=== PATIENT | male | born 1940 | race Caucasian/White ===

== ENCOUNTER → 2017-01-26 | Outpatient (CLI) | payer BC ==
[~2017-01-26] MED LIST: CZR50 PO; DICL-201 PO; HYDR25TA5 PO; OXYC-57 PO; RXC5 PO; SNG10 PO; TRAM-10 PO
[2017-01-26 13:52] LABS: ESTIMATED AVERAGE GLUCOSE 140 mg/dl; HA1C FLAG Normal (Normal)
[2017-01-26 14:02] LABS: ALT/SGPT 24 U/L (12-78); AST/SGOT 17 U/L (15-37); BLOOD UREA NITROGEN 15 mg/dl (7-18); BUN/CREATININE RATIO 16.6 (10-20); CARBON DIOXIDE 31 mmol/L (21-32); CHLORIDE 103 mmol/L (98-107); CHOLESTEROL 212 mg/dl (0-200); CREATININE 0.92 mg/dl (0.60-1.40); GLUCOSE 137 mg/dl (70-99); SODIUM 140 mmol/L (136-145); TRIGLYCERIDES 48 mg/dl (0-150); VERY LOW DENSITY LIPOPROT CALC 10 mg/dl
[2017-01-26 14:06] LABS: CHOLESTEROL/HDL RATIO 2.6; HDL CHOLESTEROL 81 mg/dl; LDL CHOLESTEROL CALCULATED 121 mg/dl
[2017-01-26 14:47] LABS: CALCIUM 9.9 mg/dl (8.5-10.1)
--- NOTE | 2017-02-01 08:29 | CODING QUERY MEDICAL NECESSITY ---
CQSUPPORTING DIAGNOSIS NEEDED A supporting diagnosis is required for the test/procedure performed on this patient in order for us to be reimbursed by the patient's insurance. Please provide a supporting diagnosis for the following test/procedure listed below next to the test name along with your signature. *If there is no additional diagnosis for this patient that would support the following test/procedure please document that below next to the test/procedure. Test(s)/Procedure(s) that require a supporting diagnosis: CRESENCIO 01/26/17 GLYCATED HEMOGLOBIN TEST Provider Signature: Date: Thank you Natasha Castellanos Health Information Management Once completed, please kindly fax back to [phone] For questions please call [phone]
== END | disposition home or self-care (01) ==
LOC: C.LABMFLN 08:50
PROVIDERS: ATTEND Family Medicine
DX: I10 Essential (primary) hypertension (principal); E11.9 Type 2 diabetes mellitus without complications

== ENCOUNTER → 2017-01-30 | Outpatient (CLI) | payer BC ==
[2017-01-30 14:23] LABS: RATIO 39.2 mcg/mg (0-30.0)
== END | disposition home or self-care (01) ==
LOC: C.LABMFLN 08:45
PROVIDERS: ATTEND Family Medicine
DX: E11.9 Type 2 diabetes mellitus without complications (principal)

== ENCOUNTER 2017-03-26 10:45 | Inpatient (IN) | payer BC, OTHER ==
[~2017-03-26] VITALS: Ht 172.7 cm; Wt 77.0 kg
[2017-03-26] MEDS ORDERED: OXYC-57 PO (11:09)
[2017-03-26] MEDS ORDERED: CZR50 PO (11:09)
[2017-03-26] MEDS ORDERED: DICL-201 PO (11:09)
[2017-03-26] MEDS ORDERED: TRAM-10 PO (11:09)
[2017-03-26] MEDS ORDERED: SNG10 PO (11:09)
[2017-03-26] MEDS ORDERED: HYDR25TA5 PO (11:09)
[2017-03-26] MEDS ORDERED: MoRPHine SULFATE 4 MG/ML 1 ML CARP\\VIAL IV STA ×2 (11:32→12:17)
[2017-03-26] MEDS ORDERED: ONDANSETRON INJ 2 MG/ML 2 ML VIAL IV STA (11:32)
--- NOTE | 2017-03-26 11:42 | EMERGENCY ROOM VISIT NOTE ---
History Report prepared by Ijeoma: Jesscia Hinton Under the Supervision of: Dr. Isaac Tamayo M.D. First contact with patient: 11:20 Chief Complaint: BACK PAIN Stated Complaint: SCIATICA PAIN,REFERRED BY DOCTOR History of Present Illness The patient is a 76 year old male who presents to the Emergency Room with complaints of constant back pain beginning 1 week ago. The patient states that he was seen by Dr. Jocelyn booth of orthopedics to have a spinal injection and before he got the injection he was told to come into the ED for his severe pain. He reports that he was told that he needs pain medication, an MRI, and admission by Dr. Arguelles. He notes that he has never had back pain before this week and has a history or arthritis, bone spurs, and narrowing at L3. The patient states that he has had an X-Ray and CT scan but not an MRI before. He complains of right leg pain, numbness and weakness in the right leg, and shortness of breath with the pain. He denies any injury, foot pain, incontinence , fever, chills, nausea, vomiting, and chest pain. Source of History: patient Onset: 1 week ago Position: back Quality: other (radiating) Timing: constant Associated Symptoms: + SOB, + weakness, + numbness, No fevers, No chills, No chest pain, No nausea, No vomiting Note: He complains of right leg pain. He denies any injury, foot pain, incontinence. Review of Systems See HPI for pertinent positives & negatives. A total of 10 systems reviewed and were otherwise negative. Past Medical & Surgical Medical Problems: (1) Arthritis (2) Lumbar disc herniation with radiculopathy Old medical records were reviewed. Nurse's notes were reviewed and I agree with. Family History No pertinent family history stated. Social History Smoking Status: Former Smoker Drug Use: none Marital Status: Housing Status: lives with significant other Occupation Status: retired Current/Historical Medications Scheduled Diclofenac (Voltaren), 75 MG PO BID Hydrochlorothiazide (Hydrochlorothiazide), 25 MG PO DAILY Losartan Potassium (Losartan Potassium), 50 MG PO DAILY Montelukast Sod (Montelukast Sodium), 10 MG PO QPM Scheduled PRN Oxycodone/Acetaminophen 5MG/325MG (Percocet 5MG/325MG), 1 TABLET PO Q8 PRN for Pain Tramadol (Ultram), 50 MG PO Q6 PRN for Pain Allergies Coded Allergies: No Known Allergies (Unverified , 03/26/17) Physical Exam Vital Signs Date Time Temp Pulse Resp B/P (MAP) Pulse Ox O2 Delivery O2 Flow Rate FiO2 03/26/17 14:30 78 18 136/66 95 Room Air 03/26/17 12:28 67 18 199/92 97 Room Air Physical Exam General: Well developed well nourished uncomfortable appearing older male, breathing comfortably on room air. Normal speech. Complaining of back pain radiating down the right leg. HEENT: Normal cephalic atraumatic. Pupils are equal round and reactive to light. Extraocular movements are intact. Sclerae anicteric. Oropharynx is pink with moist mucous membranes. No swelling of the mouth lips or tongue. Neck: Supple with a midline trachea. No meningeal signs or stiffness, no JVD or bruits. No Stridor. Chest: Clear to auscultation bilaterally. No wheezes or rhonchi. No increased work of breathing. Heart: regular rate and rhythm. Abdomen: Soft nontender, nondistended without rebound guarding or rigidity. Extremities: No cyanosis clubbing or edema. No calf tenderness or assymetry Spine/Back. Non tender to palpation. No CVA tenderness Skin: Good turgor without rashes. Neurologic exam: Cranial nerves two through 12 are intact. Motor and sensation are intact and symmetrical throughout. No numbness in buttock some subjective numbness in right medial right thigh. Medical Decision & Procedures ER Provider Diagnostic Interpretation: Radiology results as stated below per my review and radiologist interpretation: MRI OF THE LUMBAR SPINE WITHOUT CONTRAST FINDINGS: For purposes of numbering on this exam, the L5-S1 disc space is assigned to axial image 27 of 30. This exam is moderately compromised by motion artifact. A 2.8 cm T1 and T2 hyperintense L1 vertebral body lesion reflects a hemangioma. There are numerous additional hemangiomas within the lumbar spine. There is no intracanalicular mass or fluid collection. Conus terminates at the upper L1 level. Note is made of mild nonspecific edema within the right paraspinal musculature of the lower lumbar spine at the L3-L5 level shown best on sagittal STIR image of . No discrete fluid collection is identified. L1-2: The central canal and neural foramen are patent. L2-3: The central canal and neural from are patent. L3-4: There is disc bulge with a superimposed right foraminal disc protrusion. This results in severe narrowing of the right neural foramen with mass effect upon the exiting right L3 nerve root. The left neural foramen and central canal are patent. L4-5: Central canal is patent. There is facet arthrosis. Note is made of mild narrowing of the right neural foramen. L5-S1: There is slight anterolisthesis. There is mild disc bulge with facet arthrosis. Central canal is patent. There is mild narrowing of both neural foramen. IMPRESSION: 1. Disc bulge with superimposed right foraminal disc protrusion/extrusion at L3-L4 that results in severe narrowing of the right neural foramen with mass effect upon the exiting right L3 nerve root. This could be correlated with right L3 radiculopathy. 2. Study moderately compromised by motion artifact. No central canal stenosis. 3. Mild nonspecific edema of the right paraspinal musculature at the L3-L5 levels. No discrete associated fluid collection. Electronically signed by: Richard Rodriguez M.D. 03/26/2017 1:48 PM Dictated Date/Time: 03/26/2017 1:35 PM Laboratory Results 03/26/17 11:45 Red Blood Count 5.50, Mean Corpuscular Volume 87.8, Mean Corpuscular Hemoglobin 31.1, Mean Corpuscular Hemoglobin Concent 35.4, Mean Platelet Volume 10.9, Neutrophils (%) (Auto) 85.2, Lymphocytes (%) (Auto) 7.5, Monocytes (%) (Auto) 6.0, Eosinophils (%) (Auto) 0.7, Basophils (%) (Auto) 0.1, Neutrophils # (Auto) 8.13, Lymphocytes # (Auto) 0.72, Monocytes # (Auto) 0.57, Eosinophils # (Auto) 0.07, Basophils # (Auto) 0.01 Test 03/26/17 11:45 03/26/17 14:58 White Blood Count 9.55 K/uL (4.8-10.8) Red Blood Count 5.50 M/uL (4.7-6.1) Hemoglobin 17.1 g/dL (14.0-18.0) Hematocrit 48.3 % (42-52) Mean Corpuscular Volume 87.8 fL (80-100) Mean Corpuscular Hemoglobin 31.1 pg (25-34) Mean Corpuscular Hemoglobin Concent 35.4 g/dl (32-36) Platelet Count 249 K/uL (130-400) Mean Platelet Volume 10.9 fL (7.4-10.4) Neutrophils (%) (Auto) 85.2 % Lymphocytes (%) (Auto) 7.5 % Monocytes (%) (Auto) 6.0 % Eosinophils (%) (Auto) 0.7 % Basophils (%) (Auto) 0.1 % Neutrophils # (Auto) 8.13 K/uL (1.4-6.5) Lymphocytes # (Auto) 0.72 K/uL (1.2-3.4) Monocytes # (Auto) 0.57 K/uL (0.11-0.59) Eosinophils # (Auto) 0.07 K/uL (0-0.5) Basophils # (Auto) 0.01 K/uL (0-0.2) RDW Standard Deviation 43.6 fL (36.4-46.3) RDW Coefficient of Variation 13.4 % (11.5-14.5) Immature Granulocyte % (Auto) 0.5 % Immature Granulocyte # (Auto) 0.05 K/uL (0.00-0.02) Est Creatinine Clear Calc Drug Dose 57.0 ml/min Laboratory studies as stated above per my review. Medications Administered Medications (Trade) Dose Ordered Sig/Zion Route Start Time Stop Time Status Last Admin Dose Admin Morphine Sulfate (MoRPHine SULFATE INJ) 4 mg NOW STAT IV 03/26/17 11:32 03/26/17 11:34 DC 03/26/17 11:48 4 MG Ondansetron HCl (Zofran Inj) 4 mg NOW STAT IV 03/26/17 11:32 03/26/17 11:34 DC 03/26/17 11:49 4 MG Ketorolac Tromethamine (Toradol Inj) 30 mg NOW STAT IV 03/26/17 12:17 03/26/17 12:19 DC 03/26/17 12:28 30 MG Morphine Sulfate (MoRPHine SULFATE INJ) 4 mg NOW STAT IV 03/26/17 12:17 03/26/17 12:19 DC 03/26/17 12:27 4 MG Lorazepam (Ativan Inj) 1 mg NOW STAT IV 03/26/17 12:47 03/26/17 12:48 DC 03/26/17 13:00 1 MG ED Course 1120: Past medical records reviewed. The patient was evaluated in room C11B, and a complete history and physical examination were performed. 1132: Zofran Inj 4mg IV, Morphine Sulfate 4mg IV. 1217: Morphine Sulfate 4mg IV, Toradol Inj 30mg IV. 1233: I reevaluated the patient and he is doing well. 1247: Ativan Inj 1mg IV. 1345: I reevaluated and updated the patient. He appears comfortable and slightly sedated. 1409: Discussed the patient's case with Dr. Arguelles of Orthopedics. The patient will be evaluated for further management. 1417: Upon reevaluation, the patient is doing well and is slightly spacey. I discussed the results and treatment plan with the patient and his . They verbalized agreement of the treatment plan. The patient will be evaluated for further management. Medical Decision Differential diagnosis includes sciatica, cauda equina, disc disease, infection , electrolyte or metabolic abnormality. This patient comes in as described above he's had ongoing back pain with sciatic symptoms. He was seen by Drs. Dickens in pain management today had an injection was sent to the ER for pain management MRI and likely admission. The patient does seem very uncomfortable and is unable to sit down secondary the pain initially. He has no obvious neurologic deficits and he has nothing to suggest cauda equina syndrome. IV access established was given morphine 4 mg IV and Zofran 4 mg IV and he require additional IV morphine and seemed more comfortable. He has no significant electrolyte or metabolic abnormality. He has nothing to suggest infection or significant anemia. He was having a hard time getting the MRI done and was given Ativan 1 mg IV. The MRI was obtained and does show a large disc with impingement on the L3 nerve root on the right. This does correspond with his symptoms. I have discussed the case with Dr. Arguelles, the spinal surgeon, and consulted him he saw the patient in the ER and is going to admit the patient for further treatment, pain management, and evaluation and likely operative care. Medication Reconcilliation Current Medication List: was personally reviewed by me Blood Pressure Screening Patient's blood pressure: Elevated blood pressure Blood pressure disposition: Referred to PCP Consults Time Called: [id number] Consulting Physician: Dr. Arguelles - Ortho Returned Call: [phone] Discussed the patient's case with Dr. Arguelles of Orthopedics. The patient will be evaluated for further management. Impression Primary Impression: Back pain Additional Impression: Lumbar disc disease Scribe Attestation The scribe's documentation has been prepared under my direction and personally reviewed by me in its entirety. I confirm that the note above accurately reflects all work, treatment, procedures, and medical decision making performed by me. Departure Information Dispostion Being Evaluated By Hospitalist Referrals Kenneth Pinzon M.D. (PCP) Patient Instructions My [facility] Problem Qualifiers
[2017-03-26 12:00] LABS: BASO % 0.1 %; BASO ABS # 0.01 K/uL (0-0.2); COMPLETE YES; EOS % 0.7 %; HEMATOCRIT 48.3 % (42-52); IG% 0.5 %; LYMPH % 7.5 %; LYMPH ABS # 0.72 K/uL (1.2-3.4); MEAN CELL VOLUME 87.8 fL (80-100); MEAN CORPUSCULAR HEMOGLOBIN 31.1 pg (25-34); MEAN CORPUSCULAR HGB CONC 35.4 g/dl (32-36); MEAN PLATELET VOLUME 10.9 fL (7.4-10.4); NEUT % 85.2 %; PLATELET COUNT 249 K/uL (130-400); WHITE BLOOD COUNT 9.55 K/uL (4.8-10.8)
[2017-03-26] MEDS ORDERED: KETOROLAC TROMETHAMINE 30 MG/ML VIAL IV STA (12:17)
[2017-03-26 12:25] LABS: BUN/CREATININE RATIO 25.6 (10-20); CALCIUM 10.3 mg/dl (8.5-10.1); CREATININE 1.1 mg/dl (0.60-1.40); POTASSIUM 3.9 mmol/L (3.5-5.1)
[2017-03-26] MEDS ORDERED: LORAZEPAM 2 MG/ML 1 ML VIAL IV STA (12:47)
--- NOTE | 2017-03-26 13:49 | DIAGNOSTIC IMAGING REPORT ---
MRI OF THE LUMBAR SPINE WITHOUT CONTRAST CLINICAL HISTORY: Severe low back pain radiating into right lower extremity. COMPARISON STUDY: No previous studies for comparison. TECHNIQUE: Utilizing a 1.5 Laura magnet and dedicated coil, multiplanar, multiecho imaging of the lumbar spine was performed without IV contrast. FINDINGS: For purposes of numbering on this exam, the L5-S1 disc space is assigned to axial image 27 of 30. This exam is moderately compromised by motion artifact. A 2.8 cm T1 and T2 hyperintense L1 vertebral body lesion reflects a hemangioma. There are numerous additional hemangiomas within the lumbar spine. There is no intracanalicular mass or fluid collection. Conus terminates at the upper L1 level. Note is made of mild nonspecific edema within the right paraspinal musculature of the lower lumbar spine at the L3-L5 level shown best on sagittal STIR image 2 of 17. No discrete fluid collection is identified. L1-2: The central canal and neural foramen are patent. L2-3: The central canal and neural from are patent. L3-4: There is disc bulge with a superimposed right foraminal disc protrusion. This results in severe narrowing of the right neural foramen with mass effect upon the exiting right L3 nerve root. The left neural foramen and central canal are patent. L4-5: Central canal is patent. There is facet arthrosis. Note is made of mild narrowing of the right neural foramen. L5-S1: There is slight anterolisthesis. There is mild disc bulge with facet arthrosis. Central canal is patent. There is mild narrowing of both neural foramen. IMPRESSION: 1. Disc bulge with superimposed right foraminal disc protrusion/extrusion at L3-L4 that results in severe narrowing of the right neural foramen with mass effect upon the exiting right L3 nerve root. This could be correlated with right L3 radiculopathy. 2. Study moderately compromised by motion artifact. No central canal stenosis. 3. Mild nonspecific edema of the right paraspinal musculature at the L3-L5 levels. No discrete associated fluid collection. Electronically signed by: Richard Rodriguez M.D. 03/26/2017 1:48 PM Dictated Date/Time: 03/26/2017 1:35 PM
[2017-03-26] MEDS ORDERED: SODIUM CHLORIDE 0.9% 1000ML 1,000 ML IV SCH (14:58)
[2017-03-26] MEDS ORDERED: PROMETHAZINE HCL INJ 12.5 MG in SODIUM CHLORIDE 0.9% 50ML 50 ML IV PRN (15:00)
[2017-03-26] MEDS ORDERED: LORAZEPAM INJ 1 MG in SYRINGE 0.5 ML IV PRN (15:00)
[2017-03-26] MEDS ORDERED: ACETAMINOPHEN 325 MG TAB PO PRN (15:00)
[2017-03-26] MEDS ORDERED: LORAZEPAM 1 MG TAB PO PRN (15:00)
[2017-03-26] MEDS ORDERED: NALOXONE HCL 0.4 MG/1 ML VIAL/CARP IV PRN (15:00)
[2017-03-26] MEDS ORDERED: OXYCODONE/ACETAMINOPHEN 5-325 TAB PO PRN (15:00)
[2017-03-26] MEDS ORDERED: TRAMADOL HCL 50 MG TAB PO PRN (15:00)
[2017-03-26] MEDS ORDERED: CYCLOBENZAPRINE HCL 10 MG TAB PO PRN (15:00)
[2017-03-26] MEDS ORDERED: ONDANSETRON INJ 2 MG/ML 2 ML VIAL IV PRN (15:00)
--- NOTE | 2017-03-26 15:09 | History and Physical ---
History & Physical Date Mar 26, 2017. Chief Complaint Back and severe right anterior thigh pain History of Present Illness The patient is a 76 year old male with complaints of severe right leg pain. His symptoms began roughly 2 weeks ago after doing some modest yardwork. Initially began as mostly back pain modest leg pain. He underwent some healthcare prof. Unfortunately symptoms progressed to severe right leg pain. Been managed by his family physician. He has been taking oral prednisone a muscle relaxer and oxycodone. This is failed to provide any relief. He was seen by my partner and interventional pain management today but the epidural injection failed to provide any relief in fact markedly exacerbated his pain. He's been unable to sleep. Endplates is quite painful. He denies a loss of bowel or bladder control. He denies any significant left proximal knee pain. He has no significant history of back or radicular complaints prior to this time. Past Medical/Surgical History Medical Problems: (1) Arthritis (2) Lumbar disc herniation with radiculopathy Additional History Hepatic Disease: No Endocrine Disorder: No Kidney Disease: No Hypertension: Yes Heart Disease: No Bleeding Tendencies: No Infectious Diseases: No Allergies Coded Allergies: No Known Allergies (Unverified , 03/26/17) Home Medications Scheduled Diclofenac (Voltaren), 75 MG PO BID Hydrochlorothiazide (Hydrochlorothiazide), 25 MG PO DAILY Losartan Potassium (Losartan Potassium), 50 MG PO DAILY Montelukast Sod (Montelukast Sodium), 10 MG PO QPM Scheduled PRN Oxycodone/Acetaminophen 5MG/325MG (Percocet 5MG/325MG), 1 TABLET PO Q8 PRN for Pain Tramadol (Ultram), 50 MG PO Q6 PRN for Pain Physical Examination Skin: warm/dry, no rash Eyes: normal inspection, EOMI, sclerae normal ENT: normal ENT inspection, pharynx normal Head: normocephalic, atraumatic Neck: supple, no adenopathy, trachea midline Respiratory/Chest: lungs clear, normal breath sounds, no respiratory distress Cardiovascular: regular rate, rhythm, no edema, no murmur Abdomen / GI: normal bowel sounds, non tender Back: normal inspection Extremities: normal inspection, normal range of motion Neurologic/Psych: no motor/sensory deficits, alert, normal reflexes, oriented x 3 Addiitonal Comments: Patient exhibits +5 over 5 bilateral plantarflexion dorsiflexion extensor pollicis longus. His left quadricep is a 4 over 5 compared to L4 5 on the right. His marked decreased sensation to the right anterior thigh compared to left. Normal skin markings. Has negative logroll bilaterally. Deep tendon reflexes are diminished bilaterally. Marked with positive tension signs with right leg extension. Diagnosis Far lateral disc herniation L3 4 on the right. Plan of Treatment At this time patient's CAT scan and MRI confirm a massive far lateral disc herniation L3 4 on the right. There is almost complete occlusion of the neural foramen on the right. This is consistent with his clinical presentation. He is failed extensive course of nonoperative care is markedly uncomfortable like to pursue surgical intervention. It would require a lumbar decompression and fusion at the L3 4 level. To adequately and safely address decompression of the L3 nerve root on the right it would require a facetectomy and subsequent stabilization. Risks benefits pros cons and alternatives were outlined in detail. Risk include but not limited to from anesthesia blindness sterile process nerve damage but last current transfusion infection requiring reoperation benefits hopefully be marked improvement of his radicular complaints. This time we will place him in the hospital for pain control preoperative violation. We will make him nothing by mouth after midnight. Plan for surgery in the a.m.
--- NOTE | 2017-03-26 16:00 | DIAGNOSTIC IMAGING REPORT ---
CHEST 2 VIEWS ROUTINE HISTORY: pre op COMPARISON: None. FINDINGS: The lungs are clear. Cardiac silhouette is normal in size. No pleural effusions. No pneumothorax. Old, healed right-sided rib fractures. IMPRESSION: No acute process. Electronically signed by: Vikas Walden M.D. 03/26/2017 3:59 PM Dictated Date/Time: 03/26/2017 3:46 PM
--- NOTE | 2017-03-26 16:26 | Anesthesiology Progress Note ---
Anesthesia Progress Note Date of Service Mar 26, 2017. Progress Notes The patient was seen and examined. HTN/seasonal allergies, tolerated GA well in past. No family GA complications. Pt is of acceptable risk for GA tomorrow. NPO after MN. Consent obtained.
[2017-03-26 17:00] VITALS: BP 171/85; PULSE 85; TEMP 36.7; O2SAT 94
[2017-03-26 18:12] VITALS: BP 177/83; PULSE 88; TEMP 36.9; O2SAT 95
[2017-03-26] MEDS: HYDROmorphone HCL 0.5MG/ML 50 ML CASSETTE IV PRN ×2 (18:21→22:58)
[2017-03-26 18:41] LABS: CALCIUM 10.5 mg/dl (8.5-10.1); POTASSIUM 4.3 mmol/L (3.5-5.1)
[2017-03-26 18:43] LABS: ALB/GLOB RATIO 1.2 (0.9-2)
[2017-03-26 18:45] VITALS: Ht 172.7 cm; Wt 77.0 kg
--- NOTE | 2017-03-26 20:33 | History and Physical ---
History & Physical Date & Time of Service: Mar 26, 2017 at 20:18 Chief Complaint: Lumbar Disc Herniation With Radiculopathy Primary Care Physician: Kenneth Pinzon M.D. History of Present Illness Source: patient *NOTE: Please accept this as a Medical Consultation note - Dr Arguelles has primary management of the patient and we consulted.* Mr Real is a 76 yo M who is getting a facetectomy with Dr Arguelles tomorrow for lateral disc herniation L3-4 on the right. He has a hx of hypertension. 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 He reports he is otherwise very active, and denies chest pain or shortness of breath with any exertion. He denies a hx of sleep apnea, and he does not snore, have frequent AM headaches, or stop breathing in his sleep per . His BP is usually well controlled at home, and he takes Losartan and HCTZ. He is not diabetic. He has been reviewed by anesthesia already. Past Medical/Surgical History Medical Problems: (1) Arthritis Status: Chronic PSHx: Acoustic neuroma removal Family History No pertinent FHx Social History Smoking Status: Former Smoker Drug Use: none Marital Status: Occupational Status: retired Allergies Coded Allergies: No Known Allergies (Unverified , 03/26/17) Home Medications Scheduled Diclofenac (Voltaren), 75 MG PO BID Hydrochlorothiazide (Hydrochlorothiazide), 25 MG PO DAILY Losartan Potassium (Losartan Potassium), 50 MG PO DAILY Montelukast Sod (Montelukast Sodium), 10 MG PO QPM Scheduled PRN Oxycodone/Acetaminophen 5MG/325MG (Percocet 5MG/325MG), 1 TABLET PO Q8 PRN for Pain Tramadol (Ultram), 50 MG PO Q6 PRN for Pain Review of Systems See HPI for pertinent positives & negatives. A total of 10 systems reviewed and were otherwise negative. Physical Exam Vital Signs Date Time Temp Pulse Resp B/P (MAP) Pulse Ox O2 Delivery O2 Flow Rate FiO2 03/26/17 18:45 Room Air 03/26/17 18:12 36.9 88 20 177/83 (114) 95 Room Air 03/26/17 17:00 Room Air 03/26/17 17:00 36.7 85 20 171/85 (113) 94 Room Air 03/26/17 16:36 72 16 177/85 97 03/26/17 14:30 78 18 136/66 95 Room Air 03/26/17 12:28 67 18 199/92 97 Room Air GENERAL: Awake, alert, well-appearing, in no acute distress HENT: Normocephalic, atraumatic. Oropharynx unremarkable. EYES: Normal conjunctiva. Sclera non-icteric. NECK: Supple. No nuchal rigidity. FROM. No JVD. RESPIRATORY: Clear to auscultation. CARDIAC: Regular rate, normal rhythm. Extremities warm and well perfused. Pulses equal. ABDOMEN: Soft, non-distended. No tenderness to palpation. No rebound or guarding. No masses. MUSCULOSKELETAL: Chest examination reveals no tenderness. The back is symmetrical on inspection without obvious abnormality. LOWER EXTREMITIES: Calves are equal size bilaterally and non-tender. No edema. No discoloration. NEURO: Normal sensorium. No sensory or motor deficits noted. SKIN: No rash or jaundice noted. Diagnostics Laboratory Results Results Past 24 Hours Test 03/26/17 11:45 03/26/17 18:13 Range/Units White Blood Count 9.55 4.8-10.8 K/uL Red Blood Count 5.50 4.7-6.1 M/uL Hemoglobin 17.1 14.0-18.0 g/dL Hematocrit 48.3 42-52 % Mean Corpuscular Volume 87.8 80-100 fL Mean Corpuscular Hemoglobin 31.1 25-34 pg Mean Corpuscular Hemoglobin Concent 35.4 32-36 g/dl Platelet Count 249 130-400 K/uL Mean Platelet Volume 10.9 7.4-10.4 fL Neutrophils (%) (Auto) 85.2 % Lymphocytes (%) (Auto) 7.5 % Monocytes (%) (Auto) 6.0 % Eosinophils (%) (Auto) 0.7 % Basophils (%) (Auto) 0.1 % Neutrophils # (Auto) 8.13 1.4-6.5 K/uL Lymphocytes # (Auto) 0.72 1.2-3.4 K/uL Monocytes # (Auto) 0.57 0.11-0.59 K/uL Eosinophils # (Auto) 0.07 0-0.5 K/uL Basophils # (Auto) 0.01 0-0.2 K/uL RDW Standard Deviation 43.6 36.4-46.3 fL RDW Coefficient of Variation 13.4 11.5-14.5 % Immature Granulocyte % (Auto) 0.5 % Immature Granulocyte # (Auto) 0.05 0.00-0.02 K/uL Sodium Level 137 137 136-145 mmol/L Potassium Level 3.9 4.3 3.5-5.1 mmol/L Chloride Level 104 104 98-107 mmol/L Carbon Dioxide Level 27 25 21-32 mmol/L Anion Gap 6.0 8.0 3-11 mmol/L Blood Urea Nitrogen 28 30 7-18 mg/dl Creatinine 1.10 1.00 0.60-1.40 mg/dl Est Creatinine Clear Calc Drug Dose 57.0 62.7 ml/min Estimated GFR () 76.2 85.6 Estimated GFR (Non- 65.8 73.8 BUN/Creatinine Ratio 25.6 30.0 10-20 Random Glucose 134 159 70-99 mg/dl Calcium Level 10.3 10.5 8.5-10.1 mg/dl Total Bilirubin 1.0 0.2-1 mg/dl Aspartate Amino Transf (AST/SGOT) 13 15-37 U/L Alanine Aminotransferase (ALT/SGPT) 44 12-78 U/L Alkaline Phosphatase 81 45-117 U/L Total Protein 7.6 6.4-8.2 gm/dl Albumin 4.1 3.4-5.0 gm/dl Globulin 3.5 2.5-4.0 gm/dl Albumin/Globulin Ratio 1.2 0.9-2 Diagnostic Radiology IMPRESSION: 1. Disc bulge with superimposed right foraminal disc protrusion/extrusion at L3-L4 that results in severe narrowing of the right neural foramen with mass effect upon the exiting right L3 nerve root. This could be correlated with right L3 radiculopathy. 2. Study moderately compromised by motion artifact. No central canal stenosis. 3. Mild nonspecific edema of the right paraspinal musculature at the L3-L5 levels. No discrete associated fluid collection. CXR normal EKG Sinus rhythm normal EKG No previous ECGs available Impression Assessment and Plan 76 yo M, for lumbar disc surgery tomorrow with Dr Arguelles. Recommendations: Pre-op clearance: The patient is Class I Risk for the above listed procedure. He has been reviewed by anesthesia. We do not require cardiology clearance prior to his operation. He is also low risk for obstructive sleep apnea. Hypertension: We will hold his blood pressure medications, Losartan and HCTZ. Recommend re-starting post-operatively. DVT Prophylaxis per surgeon. Thank you for this consult. We will continue to follow. Attending Addendum: I have physically seen and examined this patient, have supervised the medical residents activities, and agree with the H&P as noted above with the following exceptions as noted. The patient is awake, well-developed and adequately nourished, alert and oriented 3, normocephalic and atraumatic, lying in bed and in no acute distress. HEENT--PERRL, EOMI, mucous membranes and oropharynx dry. Neck--supple, no JVD or bruits, thyroid normal, trachea midline, no adenopathy. Heart--normal S1 and S2, no extra beats, no murmurs, rubs or gallops. Lungs--clear bilaterally with good air movement, no respiratory distress, no accessory muscle use. Abdomen--normal bowel sounds and soft, nontender and nondistended, no hernias or masses, no organomegaly. Extremities--no cyanosis, clubbing or edema. There are good distal pulses b/l. Dermatologic--normal skin turgor, normal color, warm and dry, no abnormal lymph nodes, no rash. Neurologic--cranial nerves II through XII grossly intact, motor and sensory examination normal. Rheumatologic--normal range of motion, nontender, muscles and joints. Psychiatric--normal affect. Assessment and Plan: 1. Right L3 nerve compression for the OR in the morning by Dr. Arguelles--EKG shows normal sinus rhythm at 68 bpm with no acute ST-T changes, chest x-ray is normal. We'll hold HCTZ due to hypercalcemia. If Calcium persists elevated would order a 25-hydroxy vitamin D, PTH levels and GURVINDER level. If systolic blood pressures greater than 160 and heart rate greater than 70, will give metoprolol tartrate 25 mg by mouth tonight. Systolic blood pressure greater than 160 and heart rate less than 70, will give hydralazine 10 mg IV every 4 hours when necessary. Continue to give losartan 50 mg by mouth daily. Continue Singulair and tramadol as outpatient. Level of Care Med/Surg Advanced Directives Existing Living Will: Yes Existing Power of Frame Table Operator Helper: Yes ( Tanya) VTE Prophylaxis VTE Risk Assessment Done? Y/N: No Risk Level: Low Resident Tracking Resident Involvement: Resident Care Provided Care Provided: Adult Hospital Medicine
[2017-03-26] MEDS: MONTELUKAST SOD 10 MG TAB PO SCH (20:56)
[2017-03-26] MEDS: DOCUSATE SODIUM 100 MG CAP PO SCH (20:56)
[2017-03-26 21:05] VITALS: BP 162/78
[2017-03-26] MEDS ORDERED: HydrALAZINE HCL 20 MG/ML VIAL IV. PRN (21:45)
[2017-03-26] MEDS ORDERED: METOPROLOL TARTRATE 25 MG TAB PO PRN (21:45)
[2017-03-26 22:29] LABS: URINE APPEARANCE CLEAR (CLEAR); URINE COLOR DK YELLOW; URINE EPITHELIAL CELL AUTO >30 /lpf (0-5); URINE NITRITE NEG (NEG); URINE PH 5.5 (4.5-7.5); URINE SPECIFIC GRAVITY 1.032 (1.000-1.030); UROBILINOGEN NEG (NEG)
[2017-03-26 22:30] LABS: MANUAL MICROSCOPIC REQUIRED? NO; REVIEW REQ? NO
[2017-03-26 22:31] LABS: URINE BILIRUBIN NEG (NEG)
[2017-03-26 22:45] VITALS: BP 169/82; PULSE 64; TEMP 36.8; O2SAT 96
[2017-03-26 23:16] VITALS: BP 164/77; PULSE 66
[2017-03-27] VITALS (12 sets, daily range): BP systolic 109–191; BP diastolic 58–79; PULSE 52–91; TEMP 36.4–37.2; O2SAT 94–99
[2017-03-27] MEDS ORDERED: CEFAZOLIN 1000MG/55 ML D5W IV SCH (06:00)
[2017-03-27] MEDS ORDERED: CEFAZOLIN IV 1,000 MG in DEXTROSE 5% 50ML 50 ML IV SCH (06:00)
[2017-03-27] MEDS ORDERED: BUPIVACAINE/EPINEPHRINE 0.5% MPF 1:200,000 10 ML VIAL ONE (06:47)
[2017-03-27] MEDS ORDERED: SODIUM CHLORIDE 0.9% PF 50 ML VIAL ONE (06:48)
[2017-03-27] MEDS ORDERED: BACITRACIN 50000 UNIT VIAL ONE (06:48)
[2017-03-27] MEDS ORDERED: NEOSTIGMINE METHYLSULFATE 1 MG/ML 10ML VIAL ONE (06:54)
[2017-03-27] MEDS ORDERED: DEXAMETHASONE SOD INJ 4 MG/ML VIAL ONE (06:54)
[2017-03-27] MEDS ORDERED: LIDOCAINE HCL 2% 2 ML VIAL (20MG/ML) ONE (06:54)
[2017-03-27] MEDS ORDERED: ROCURONIUM BROMIDE 10 MG/ML 5 ML VIAL ONE (06:54)
[2017-03-27] MEDS ORDERED: PROPOFOL IV EMULSION 10 MG/ML 20 ML VIAL IV ONE (06:54)
[2017-03-27] MEDS ORDERED: GLYCOPYRROLATE INJ 0.2 MG/ML VIAL ONE ×2 (06:54→08:55)
[2017-03-27] MEDS ORDERED: MIDAZOLAM HCL 1 MG/ML 2ML VIAL ONE (06:54)
[2017-03-27] MEDS ORDERED: ONDANSETRON INJ 2 MG/ML 2 ML VIAL ONE (06:54)
[2017-03-27] MEDS ORDERED: FENTANYL CITRATE INJ 50 MCG/1 ML 2 ML VIAL ONE (06:55)
[2017-03-27] MEDS ORDERED: SODIUM CHLORIDE 0.9% INJ 10 ML VIAL ONE ×2 (07:00→08:35)
[2017-03-27] MEDS ORDERED: LARYING-O-JET KIT (LTA) ONE ×2 (07:00)
[2017-03-27] MEDS ORDERED: HYDROmorphone INJ 2 MG/ML SYR/VIAL ONE (07:01)
[2017-03-27] MEDS ORDERED: FENTANYL CITRATE INJ 50 MCG/1 ML 2 ML VIAL IV PRN (07:30)
[2017-03-27] MEDS ORDERED: EpHEDrine SULFATE INJ 50 MG/ML AMP IV PRN (07:30)
[2017-03-27] MEDS ORDERED: ATROPINE SULFATE 0.1 MG/ML 5ML SYR IV PRN (07:30)
[2017-03-27] MEDS ORDERED: HYDROmorphone INJ 1 MG/ML SYR IV PRN (07:30)
[2017-03-27] MEDS ORDERED: ONDANSETRON INJ 2 MG/ML 2 ML VIAL IV PRN ×2 (07:30→09:15)
--- NOTE | 2017-03-27 07:30 | History & Physical Bridge Note ---
H&P Re-Evaluation Bridge Note: I have examined the patient, reviewed the History & Physical and in the interval since the performance of the History & Physical I have noted the following changes of clinical significance: No changes noted
[2017-03-27] MEDS ORDERED: HydrALAZINE HCL 20 MG/ML VIAL ONE (08:35)
[2017-03-27] MEDS ORDERED: EpHEDrine SULFATE 50MG/5ML SYR ONE (08:45)
[2017-03-27] MEDS ORDERED: HYDROCHLOROTHIAZIDE 25 MG TAB PO SCH (09:00)
[2017-03-27] MEDS ORDERED: SODIUM CHLORIDE 0.9% 1000ML 1,000 ML IV SCH (09:03)
--- NOTE | 2017-03-27 09:13 | DIAGNOSTIC IMAGING REPORT ---
INTRAOPERATIVE LUMBAR SPINE 2 VIEWS CLINICAL HISTORY: L3-L4 Decompression and fusion COMPARISON STUDY: No previous studies for comparison. FINDINGS: 2 intraoperative fluoroscopic spot images are provided for interpretation. 11 seconds of fluoroscopic time was utilized. There are postsurgical changes of an L3-4 discectomy and interbody fusion. L3 and L4 pedicle screws with adjoining spinal rods are visualized. IMPRESSION: Postsurgical changes of an L3-4 discectomy and interbody fusion and posterior pedicle screw fixation Electronically signed by: Williams Tamayo M.D. 03/27/2017 9:12 AM Dictated Date/Time: 03/27/2017 9:11 AM
--- NOTE | 2017-03-27 09:14 | [facility] Operative Report ---
Operative Report Operative Date Mar 27, 2017. Pre-Operative Diagnosis Spinal stenosis Post-Operative Diagnosis Same as preop Procedure(s) Performed #1 lumbar decompression medial facetectomies foraminotomies L3 4. #2 posterior spinal fusion L3 4. #3 posterior instrumentation L3 4. #4 interbody fusion L3 4. #5 placement peek cage 12 x 26 mm at L3 4. #6 placement of locally harvested morcellized autograft in the posterior lateral gutters. #Placement infuse collagen sponge about mask graft in the posterior lateral gutters DBM in the interbody space. Surgeon Dr. Stefanie Arguelles Drawer Waxer Surgeon(s) Xavier Palomino PAC Estimated Blood Loss 60ml Findings Spinal stenosis with massive far lateral disc herniation L3 4 on the right Specimens None Description of Procedure Patient was met with preoperatively case discussed all questions are dressed with a point patient was taken back to the operative suite and after undergoing intubation placed in a prone position on the Oleg table on top Arben frame. All bony promises well-padded eyes inspected to ensure no external pressure. This point the lumbar spine was prepped and draped in the normal sterile fashion. Sharp dissection with the assistance of Bovie cautery was performed onto an exposing the lamina and transverse processes of L3 4 bilaterally. From a caudal to cephalad fashion complete laminectomy of L3 was performed including facetectomy foraminotomy on the right addressing severe stenosis and massive disc herniation occupying the foramen. After complete decompression pedicle screws are placed in L3-L4 bilaterally with assistance of fluoroscopy in the appropriate size nate placed. Through a trans-foraminal approach on the right a complete discectomy was performed and plate created subcortical bleeding bone and a 12 x 26 mm peek cage filled with DBM tapped in position. The rods were then compressed locked into final position bilaterally. Transverse processes of 34 burred to subcortical bleeding bone. Infuse collagen sponge mask graft locally harvested morcellized autograft was placed in the posterior lateral gutters. 7 flat DAVID drain inserted. Incision closed with 1 Vicryl fascia 2-0 Vicryl subcutaneous cutaneously 4-0 Monocryl for final skin closure Steri-Strip sterile dressing placed patient we can taken to PACU stable condition. Please note Yesenia Garcia was present at the entire procedure involved in patient positioning complex portions of the procedure and final skin closure. I attest to the content of the Intraoperative Record and any orders documented therein. Any exceptions are noted below.
[2017-03-27] MEDS ORDERED: METOCLOPRAMIDE HCL INJ 5 MG/ML 2 ML VIAL IV PRN (09:15)
[2017-03-27] MEDS ORDERED: FAMOTIDINE 20 MG TAB PO PRN (09:15)
[2017-03-27] MEDS ORDERED: LORAZEPAM INJ 0.5 MG in SYRINGE 0.75 ML IV PRN (09:15)
[2017-03-27] MEDS ORDERED: ACETAMINOPHEN 500 MG TAB PO PRN (09:15)
[2017-03-27] MEDS ORDERED: LORAZEPAM 0.5 MG TAB PO PRN (09:15)
[2017-03-27] MEDS ORDERED: BISACODYL 10 MG SUPP PR PRN (09:15)
[2017-03-27] MEDS ORDERED: DO NOT ADMINISTER FLU VACCINE PRN ×3 (09:15)
[2017-03-27] MEDS ORDERED: MAGNESIUM HYDROXIDE SUSP 30 ML UDC PO PRN (09:15)
[2017-03-27] MEDS ORDERED: SOD PHOSPHATE/SOD BIPHOSPHATE ENEMA 132 ML BTL PR PRN (09:15)
[2017-03-27] MEDS ORDERED: PROMETHAZINE HCL INJ 12.5 MG in SODIUM CHLORIDE 0.9% 50ML 50 ML IV PRN (09:15)
[2017-03-27] MEDS ORDERED: hydrOXYzine HCL 25 MG TAB PO PRN (09:15)
[2017-03-27] MEDS ORDERED: NALOXONE HCL 0.4 MG/1 ML VIAL/CARP IV PRN ×2 (09:15)
[2017-03-27] MEDS ORDERED: ALUMINUM/MAGNESIUM SUSP 30 ML UDC PO PRN (09:15)
[2017-03-27] MEDS ORDERED: DO NOT ADMINISTER PNEUMOCOCCAL VACCINE PRN ×2 (09:15)
[2017-03-27] MEDS ORDERED: ACETAMINOPHEN IV 100 ML IV PRN (09:15)
[2017-03-27] MEDS: HYDROmorphone HCL 0.5MG/ML 50 ML CASSETTE IV PRN ×4 (09:55→19:08)
--- NOTE | 2017-03-27 10:01 | Anesthesiology Progress Note ---
Anesthesia Post Op Note Date & Time Mar 27, 2017 at 10:00 Vital Signs Pain Intensity: 0 Vital Signs Past 12 Hours Date Time Temp Pulse Resp B/P (MAP) Pulse Ox O2 Delivery O2 Flow Rate FiO2 03/27/17 09:57 36.8 53 17 149/71 98 Room Air 03/27/17 09:42 61 13 98 03/27/17 09:42 61 13 98 03/27/17 09:42 58 13 03/27/17 09:42 58 13 03/27/17 09:41 154/70 03/27/17 09:41 154/70 03/27/17 09:37 56 12 03/27/17 09:37 56 12 95 03/27/17 09:37 56 12 95 03/27/17 09:37 56 12 03/27/17 09:36 167/72 03/27/17 09:36 167/72 03/27/17 09:32 60 14 95 03/27/17 09:32 59 14 03/27/17 09:32 60 14 95 03/27/17 09:32 59 14 03/27/17 09:31 164/85 03/27/17 09:31 164/85 03/27/17 09:27 62 21 96 03/27/17 09:27 61 21 03/27/17 09:27 62 21 96 03/27/17 09:27 61 21 03/27/17 09:26 165/70 03/27/17 09:26 165/70 03/27/17 09:23 158/85 03/27/17 09:23 158/85 03/27/17 09:22 36.2 68 16 158/85 96 Room Air 03/27/17 06:34 36.5 54 16 191/79 (116) 99 Room Air 03/27/17 06:16 52 161/78 (105) 03/27/17 03:07 36.8 63 16 166/77 (106) 99 Room Air 03/26/17 23:16 66 164/77 (106) 03/26/17 23:00 Room Air 03/26/17 22:45 36.8 64 16 169/82 (111) 96 Room Air Notes Mental Status: alert / awake / arousable, participated in evaluation Pt Amnestic to Procedure: Yes Nausea / Vomiting: adequately controlled Pain: adequately controlled Airway Patency, RR, SpO2: stable & adequate BP & HR: stable & adequate Hydration State: stable & adequate Anesthetic Complications: no major complications apparent
[2017-03-27] MEDS: LOSARTAN POTASSIUM 50 MG TAB PO SCH (11:05)
[2017-03-27] MEDS: DOCUSATE SODIUM 100 MG CAP PO SCH ×2 (11:05→21:21)
[2017-03-27] MEDS: LACTATED RINGER'S 1000ML 1,000 ML IV SCH ×3 (11:09→22:34)
--- NOTE | 2017-03-27 11:51 | Family Medicine Progress Note ---
Progress Note Date of Service Mar 27, 2017. Subjective Pt evaluation today including: chart review, lab review I arrived at the patients room at approximately 8am and he was taken for surgery. I will be away in clinic this afternoon. Defer to Dr. Way's Subjective and Obtjective assessment. Objective Physical Exam Notes: Unable to assess, pt was in for surgery. Will reassess at a later time. Assessment and Plan 76M with a PMHx of L3 Radiculopathy and HTN. S/p L3 Facetectomy. Post op Day # 1. HTN: - Continue Losartan 50mg daily - Hold HCTZ 25mg PO daily due to hypercalcemia. - If systolic blood pressures greater than 160 and heart rate greater than 70, will give metoprolol tartrate 25 mg by mouth tonight. - Systolic blood pressure greater than 160 and heart rate less than 70, will give hydralazine 10 mg IV every 4 hours when necessary. - Dilautid DELI COOK for pain. - LR at 150mls/hr until regular diet can be resumed postoperative. Home Meds - Continue Montekulast 10mg PO QPM DVT Prophylaxis - Defer to Dr. Arguelles's recommendation. Full Code Resident Physician Supervision Note: I interviewed and examined the patient. Discussed with Dr. Brizuela and agree with findings and plan as documented in the note. Any exceptions or clarifications are listed here: None Documented By: Jose Way feeling good. no complaints. all other ROS otherwise negative except for as above vitals noted nad breathing unlabored no pallor or icterus HTN - good control. meds as above. otherwise as above Resident Involvement: Resident Care Provided Care Provided: Adult Hospital Medicine
[2017-03-27] MEDS: CEFAZOLIN IV 1,000 MG in DEXTROSE 5% 50ML 50 ML IV SCH ×2 (15:56→23:49)
[2017-03-27] MEDS: DEXAMETHASONE INJ 6 MG in SYRINGE 0 ML IV SCH ×2 (15:56→23:49)
[2017-03-27] MEDS ORDERED: NURSING DECISION MEDICATION ORDER SCH (20:00)
[2017-03-27] MEDS ORDERED: COUGH DROP (SUGAR FREE) LOZ 24 LOZ/1 BOX PO PRN (20:00)
[2017-03-27] MEDS: DOCUSATE SODIUM/SENNA 50/8.6MG TAB PO SCH (21:21)
[2017-03-27] MEDS: MONTELUKAST SOD 10 MG TAB PO SCH (21:21)
[2017-03-28 03:33] VITALS: BP 134/73; PULSE 55; TEMP 36.5; O2SAT 98
[2017-03-28] MEDS: LACTATED RINGER'S 1000ML 1,000 ML IV SCH (05:03)
[2017-03-28] MEDS ORDERED: NURSING DECISION MEDICATION ORDER SCH (05:45)
[2017-03-28] MEDS ORDERED: OXYCODONE HCL IR 5 MG TAB (IMMEDIATE RELEASE) PO PRN (06:00)
[2017-03-28] MEDS ORDERED: HYDROmorphone INJ 1 MG/ML SYR IV PRN (06:00)
[2017-03-28] MEDS ORDERED: DC PCA SCH (06:00)
[2017-03-28] MEDS ORDERED: HYDROmorphone INJ 0.5 MG/0.5 ML SYR IV PRN (06:00)
[2017-03-28] MEDS: DEXAMETHASONE INJ 6 MG in SYRINGE 0 ML IV SCH (07:05)
[2017-03-28] MEDS ORDERED: RXC5 PO (07:45)
--- NOTE | 2017-03-28 07:46 | Discharge Instructions ---
Discharge Instructions Date of Service Mar 28, 2017. Admission Reason for Admission: Lumbar Disc Herniation With Radiculopathy Discharge Discharge Diagnosis / Problem: lumbar stenosis Discharge Goals Goal(s): Improve function Activity Recommendations Activity Limitations: per Instructions/Follow-up section . Instructions / Follow-Up Instructions / Follow-Up ACTIVITY RECOMMENDATIONS: SELF CARE INSTRUCTIONS AFTER THORACIC/LUMBAR FUSIONS 1. You may walk to your tolerance. It is good exercise for your legs and back. Expect some back and intermittent leg aches and pains. 2. You may perform "counter-top" level activities (make a sandwich, tyler with a project, etc.). 3. No bending or lifting of more than 10 pounds or back twisting of any nature (roll like a log when turning in bed). 4. You may ride in a car for 20-30 minutes at a time. No driving until after your first visit with your doctor. 5. Frequent changes of position and restricting sitting to 30 minutes at a time will help limit the amount of back spasms and stiffness you may experience. 6. You may discontinue the use of ambulatory aids (cane, crutches, etc.) once your strength and confidence allow. 7. You may retail business development manager the shower and let water strike your incision when you arrive home at least once daily. Do not take a tub bath, sit in a hot tub or go into a swimming pool until after your first recheck in the office. SPECIAL CARE INSTRUCTIONS: VERY IMPORTANT TO READ AND REVIEW A. Your surgical incision has been closed with a cosmetic suture under the skin that will dissolve in about 6 weeks. In 14 days, you can use a pair of clean scissors and cut the suture that is left outside of the skin at the ends of your incision. 1. The small skin tapes can be removed 7 days after surgery if they have not fallen off by that point. 2. You may keep the wound open to air as much as possible to promote healing after post-op day number 5 unless told otherwise by your doctor. 3. If you think the wound looks like it is becoming infected (redness or worsening drainage) and/or you are experiencing fever, chill or worsening back pain and muscle spasms, contact the office so that we may evaluate you as soon as possible. B. Complications are uncommon, but please contact us if you have any signs or symptoms of: 1. wound infection (fever higher than 102.5 degrees F, redness, separation of wound, drainage, or increasing pain from the incision) 2. blood clots in legs (pain, swelling, redness and warmth in legs) 3. urinary tract infection (fever higher than 102.5 degrees F, burning upon urination or increased frequency of urination) 4. nerve problems (inability to walk on your toes or heels, numbness, loss of bowel or bladder control) 5. any other symptoms that concern you C. Please call the office at if you have any concerns or questions about your operation or recovery. D. No smoking! Smoking drastically decreases the chance of a solid fusion. E. Do not take any anti-inflammatory medications (Indocin, Advil, Motrin, Aspirin, Naprosyn, etc.) as these may inhibit the chance of a solid fusion. Tylenol is okay to take for pain. MANAGING PAIN AFTER SPINAL SURGERY 1. Narcotic medication is intended for short-term use and will be provided for surgical pain. Surgical pain usually lasts for a period of 4-6 weeks. Narcotic medication includes Percocet, Vicodin, Darvocet, Tylenol #3 or Lortab. 2. Longer-term pain is more appropriately treated with non-narcotic medication such as Tylenol ES. 3. Muscle spasm is not appropriately treated with narcotics. Muscle relaxers such as Soma, Flexeril or Skelaxin can be used along with Tylenol ES. 4. Remember that we all live with some "aches and pains". This is not unusual or uncommon after an injury or as we get older. a. Back pain is expected and may include muscle spasms for 4 to 6 weeks after surgery. The pain should gradually improve. If the pain worsens for no apparent reason, please contact the office. b. Intermittent leg pain may also be experienced and should not be concerned about unless it worsens for no apparent reason. If so, please contact the office. 5. We will provide appropriate medication within the normal guidelines of their prescribed use. We will also be very cautious and aware of potential abuse and extended duration of patients' medication needs. a. Pain medications are for your comfort and to assist with sleep and rest so that the tissue can heal. They are not provided in order to return to normal activity and should not be used through the day. To do so or worsening pain at night can result from ongoing tissue damage and development of tolerance to the prescribed medicine. 6. Please allow 2-3 days to process refills. Prescriptions will not be mailed but must be picked up at the office. FOLLOW UP VISIT: Keep your scheduled follow-up appointment. Any questions, please call the office at . Current Hospital Diet Patient's current hospital diet: Regular Diet Discharge Diet Recommended Diet: Regular Diet Procedures Procedures Performed: #1 lumbar decompression medial facetectomies foraminotomies L3 4. #2 posterior spinal fusion L3 4. #3 posterior instrumentation L3 4. #4 interbody fusion L3 4. #5 placement peek cage 12 x 26 mm at L3 4. #6 placement of locally harvested morcellized autograft in the posterior lateral gutters. #Placement infuse collagen sponge about mask graft in the posterior lateral gutters DBM in the interbody space. Pending Studies Studies pending at discharge: no Laboratory Results Hemoglobin A1c Test 01/26/17 08:58 Range/Units Estimated Average Glucose 140 mg/dl Hemoglobin A1c 6.5 H 4.5-5.6 % Lipid Panel Test 01/26/17 08:58 Range/Units Triglycerides Level 48 0-150 mg/dl Cholesterol Level 212 H 0-200 mg/dl HDL Cholesterol 81 mg/dl Cholesterol/HDL Ratio 2.6 LDL Cholesterol, Calculated 121 mg/dl Medical Emergencies . Who to Call and When: Medical Emergencies: If at any time you feel your situation is an emergency, please call 911 immediately. . Non-Emergent Contact Non-Emergency issues call your: Primary Care Provider . "Provider Documentation" section prepared by Moncho Arguelles. . VTE Core Measure Inpt VTE Proph given/why not?: Ella Aviles, SCD's
--- NOTE | 2017-03-28 07:56 | Anesthesiology Progress Note ---
Anesthesia Post Op Note Date & Time Mar 28, 2017 at 07:56 Vital Signs Pain Intensity: 0.0 Vital Signs Past 12 Hours Date Time Temp Pulse Resp B/P (MAP) Pulse Ox O2 Delivery O2 Flow Rate FiO2 03/28/17 07:15 Room Air 03/28/17 03:33 36.5 55 16 134/73 (93) 98 Room Air 03/27/17 22:43 36.6 62 16 126/68 (87) 97 Room Air 03/27/17 20:00 Room Air Notes Mental Status: alert / awake / arousable Pt Amnestic to Procedure: Yes Nausea / Vomiting: adequately controlled Pain: adequately controlled Airway Patency, RR, SpO2: stable & adequate BP & HR: stable & adequate Hydration State: stable & adequate Anesthetic Complications: no major complications apparent
[2017-03-28 08:01] VITALS: BP 154/76; PULSE 68; TEMP 36.8; O2SAT 93
[2017-03-28 08:04] VITALS: O2SAT 93
[2017-03-28 08:44] LABS: BUN/CREATININE RATIO 27.2 (10-20); CALCIUM 9.9 mg/dl (8.5-10.1); CREATININE 0.75 mg/dl (0.60-1.40); POTASSIUM 4.8 mmol/L (3.5-5.1)
[2017-03-28 08:49] LABS: COMPLETE YES; HEMATOCRIT 38.2 % (42-52); IG% 0.2 %; LYMPH % 7.3 %; LYMPH ABS # 0.88 K/uL (1.2-3.4); MEAN CELL VOLUME 89.9 fL (80-100); MEAN CORPUSCULAR HEMOGLOBIN 29.4 pg (25-34); MEAN CORPUSCULAR HGB CONC 32.7 g/dl (32-36); MEAN PLATELET VOLUME 10.7 fL (7.4-10.4); MONO % 9.1 %; NEUT % 83.4 %; PLATELET COUNT 208 K/uL (130-400); RED BLOOD COUNT 4.25 M/uL (4.7-6.1); WHITE BLOOD COUNT 12.12 K/uL (4.8-10.8)
[2017-03-28] MEDS: DOCUSATE SODIUM 100 MG CAP PO SCH ×2 (09:14→21:01)
[2017-03-28] MEDS: LOSARTAN POTASSIUM 50 MG TAB PO SCH (09:14)
--- NOTE | 2017-03-28 10:50 | Family Medicine Progress Note ---
Progress Note Date of Service Mar 28, 2017. Subjective Pt evaluation today including: conversation w/ patient, physical exam, chart review, lab review The patient was seen and examined at bedside. No acute overnight events. Pt was ambulating well. Tolerating his diet. Reports that his radicular pain has almost completely gone away. PT has had a BM and has voided. Reports some inner thigh numbness which is new. Plan of care was described to the patient and all questions were answered. ROS: No chest pain, no SOB, no dyspnea on exertion, no palpitations, no fevers, no chills, no nausea, no vomiting, no diarrhea, no dysuria, no rash. Objective Physical Exam General Appearance: WD/WN, no apparent distress Neck: supple, no adenopathy Respiratory/Chest: chest non-tender, lungs clear, normal breath sounds, no respiratory distress, no accessory muscle use Cardiovascular: regular rate, rhythm, no edema, no gallop, no JVD, no murmur Abdomen: normal bowel sounds, non tender, soft, no organomegaly, no pulsatile mass Extremities: normal range of motion, non-tender, normal inspection, no pedal edema, no calf tenderness, + pertinent finding (Excellent motor power in lower extremities. ) Neurologic/Psychiatric: alert, normal mood/affect, oriented x 3, + pertinent finding (sensation to light touch intact over LE bilaterally. ) Skin: no rash Assessment and Plan 76M with a PMHx of L3 Radiculopathy and HTN. S/p L3 Facetectomy by Dr. Arguelles. Post op Day #1. L3 Facetectomy - Progressing well. - PT and OT on board. - Oxycodone 5-10mg Q4PRN for pain with Dilautid 0.5mg - 1mg IV PRN for breakthrough. HTN - Continue Losartan 50mg daily - Hold HCTZ 25mg PO daily due to hypercalcemia, will resume on discharge. - If systolic blood pressures greater than 160 and heart rate greater than 70, will give metoprolol tartrate 25 mg by mouth tonight. - Systolic blood pressure greater than 160 and heart rate less than 70, will give hydralazine 10 mg IV every 4 hours when necessary. Home Meds - Continue Montekulast 10mg PO QPM DVT Prophylaxis - Encourage early ambulation. Full Code Resident Physician Supervision Note: I interviewed and examined the patient. Discussed with Dr. Brizuela and agree with findings and plan as documented in the note. Any exceptions or clarifications are listed here: None Documented By: Jose Way sleepign comfortably, d/w R2, stable. vitals noted nad breathing unlabored HTN - reasonable control continue current Resident Involvement: Resident Care Provided Care Provided: Adult [facility]
--- NOTE | 2017-03-28 10:57 | Discharge Summary ---
Discharge Summary Date of Service Mar 28, 2017. Discharge Summary Admission Date: Mar 26, 2017 at 15:04 Medication Reconciliation New Medications: Oxycodone HCl (Oxycodone HCl) 5 Mg Tab 5-10 MG PO Q4H PRN for Moderate - severe pain for 30 Days, #60 TAB Continued Medications: Diclofenac (Voltaren) 75 Mg Tabcr 75 MG PO BID WITH FOOD Hydrochlorothiazide (Hydrochlorothiazide) 25 Mg Tab 25 MG PO DAILY Losartan Potassium (Losartan Potassium) 50 Mg Tab 50 MG PO DAILY Montelukast Sod (Montelukast Sodium) 10 Mg Tab 10 MG PO QPM Oxycodone/Acetaminophen 5MG/325MG (Percocet 5MG/325MG) Tab 1 TABLET PO Q8 PRN for Pain PAIN Tramadol (Ultram) 50 Mg Tab 50 MG PO Q6 PRN for Pain Hospital Course This includes examination of the patient, discharge planning, medication reconciliation, and communication with other providers. Discharge Instructions Please refer to the electronic Patient Visit Report (Discharge Instructions) for additional information.
[2017-03-28 11:55] VITALS: BP 146/72; PULSE 62; TEMP 36.8; O2SAT 100
--- NOTE | 2017-03-28 13:16 | Progress Note ---
Progress Note Date of Service Mar 28, 2017. Progress Note Patient is postop day #1. Leg symptoms are markedly improved. Back pain is well-controlled. Vital signs are stable DAVID drain decreased appropriately. Assessment status post lumbar decompression fusion. Plan at this time is continue physical therapy advance his bowel regimen anticipate possible home tomorrow.
[2017-03-28 15:10] VITALS: BP 135/73; PULSE 62; TEMP 37; O2SAT 97
[2017-03-28] MEDS: MONTELUKAST SOD 10 MG TAB PO SCH (21:01)
[2017-03-28] MEDS: DOCUSATE SODIUM/SENNA 50/8.6MG TAB PO SCH (21:01)
[2017-03-29] VITALS: BP 169/79; PULSE 57; TEMP 36.5; O2SAT 99
[2017-03-29] MEDS: POLYETHYLENE (MIRALAX) 17 GM PACK PO SCH ×2 (05:28→12:00)
[2017-03-29 06:48] LABS: HEMATOCRIT 37.8 % (42-52); MEAN CELL VOLUME 90.4 fL (80-100); MEAN CORPUSCULAR HEMOGLOBIN 29.9 pg (25-34); MEAN CORPUSCULAR HGB CONC 33.1 g/dl (32-36); MEAN PLATELET VOLUME 10.8 fL (7.4-10.4); PLATELET COUNT 192 K/uL (130-400); RED BLOOD COUNT 4.18 M/uL (4.7-6.1); WHITE BLOOD COUNT 8.76 K/uL (4.8-10.8)
[2017-03-29 07:24] LABS: CALCIUM 9.6 mg/dl (8.5-10.1); CREATININE 0.86 mg/dl (0.60-1.40); POTASSIUM 3.6 mmol/L (3.5-5.1)
[2017-03-29 07:29] VITALS: BP 163/78; PULSE 58; TEMP 36.5; O2SAT 99
[2017-03-29] MEDS: DOCUSATE SODIUM 100 MG CAP PO SCH (08:20)
[2017-03-29] MEDS: LOSARTAN POTASSIUM 50 MG TAB PO SCH (08:20)
--- NOTE | 2017-03-29 12:42 | Discharge Summary ---
Orthopedic Discharge Summary Admission Date/Reason Mar 26, 2017 at 15:04 Lumbar Disc Herniation With Radiculopathy. Discharge Date/Disposition Mar 29, 2017 Home Diagnosis Principal Diagnosis: Lumbar spinal stenosis Procedure(s) Performed Lumbar decompression and instrumented [facility] Reconciliation New Medications: Oxycodone HCl (Oxycodone HCl) 5 Mg Tab 5-10 MG PO Q4H PRN for Moderate - severe pain for 30 Days, #60 TAB Continued Medications: Diclofenac (Voltaren) 75 Mg Tabcr 75 MG PO BID WITH FOOD Hydrochlorothiazide (Hydrochlorothiazide) 25 Mg Tab 25 MG PO DAILY Losartan Potassium (Losartan Potassium) 50 Mg Tab 50 MG PO DAILY Montelukast Sod (Montelukast Sodium) 10 Mg Tab 10 MG PO QPM Oxycodone/Acetaminophen 5MG/325MG (Percocet 5MG/325MG) Tab 1 TABLET PO Q8 PRN for Pain PAIN Tramadol (Ultram) 50 Mg Tab 50 MG PO Q6 PRN for Pain Admission Physical Exam As per Admitting History & Physical. Hospital Course Patient's doing quite well status post lumbar decompression fusion. Leg pain is improved. Pain is controlled. He is doing quite well and progressing with physical therapy. Lab values have been within normal limits during his hospital stay. Discharge Instructions Please refer to the electronic Patient Visit Report (Discharge Instructions) for additional information.
[2017-03-29 12:49] VITALS: BP 163/78; PULSE 58; TEMP 36.5; O2SAT 99
--- NOTE | 2017-03-29 15:01 | Discharge Summary ---
Orthopedic Discharge Summary Admission Date/Reason Mar 26, 2017 at 15:04 Lumbar Disc Herniation With Radiculopathy. Discharge Date/Disposition Mar 29, 2017 Home Diagnosis Principal Diagnosis: Lumbar spinal stenosis Admission Physical Exam As per Admitting History & Physical. Hospital Course Patient 1 lumbar decompression fusion tolerated as well as taken to the orthopedic floor postoperatively. Postoperative day #1 Ancef in amatory progressed nicely through postoperative day #2 and subsequently discharge home discharge orders and instructions found on the chart for further review. Discharge Instructions Please refer to the electronic Patient Visit Report (Discharge Instructions) for additional information.
--- NOTE | 2017-03-29 17:42 | Family Medicine Progress Note ---
Progress Note Date of Service Mar 29, 2017. Subjective Pt evaluation today including: conversation w/ patient, physical exam, chart review The patient was seen and examined at bedside. No acute overnight events. Pt was ambulating well. Tolerating his diet. Thigh numbness has improved. Plan of care was described to the patient and all questions were answered. Likely discharge today. ROS: No chest pain, no SOB, no dyspnea on exertion, no palpitations, no fevers, no chills, no nausea, no vomiting, no diarrhea, no dysuria, no rash. Objective Physical Exam Notes: General Appearance: WD/WN, no apparent distress Neck: supple, no adenopathy Respiratory/Chest: chest non-tender, lungs clear, normal breath sounds, no respiratory distress, no accessory muscle use Cardiovascular: regular rate, rhythm, no edema, no gallop, no JVD, no murmur Abdomen: normal bowel sounds, non tender, soft, no organomegaly, no pulsatile mass Extremities: normal range of motion, non-tender, normal inspection, no pedal edema, no calf tenderness, + pertinent finding (Excellent motor power in lower extremities. ) Pt is walking and doing well. Neurologic/Psychiatric: alert, normal mood/affect, oriented x 3, + pertinent finding (sensation to light touch intact over LE bilaterally. ) Skin: no rash Assessment and Plan 76M with a PMHx of L3 Radiculopathy and HTN. S/p L3 Facetectomy by Dr. Arguelles. Post op Day #2. Pt is doing well. L3 Facetectomy - Progressing well. - PT and OT on board. - Oxycodone 5-10mg Q4PRN for pain with Dilautid 0.5mg - 1mg IV PRN for breakthrough. HTN - Continue Losartan 50mg daily - Hold HCTZ 25mg PO daily due to hypercalcemia, will resume on discharge. - If systolic blood pressures greater than 160 and heart rate greater than 70, will give metoprolol tartrate 25 mg by mouth tonight. - Systolic blood pressure greater than 160 and heart rate less than 70, will give hydralazine 10 mg IV every 4 hours when necessary. Home Meds - Continue Montekulast 10mg PO QPM DVT Prophylaxis - Encourage early ambulation. Full Code pt discharged prior to my being able to see him. d/w dr ceja, agree w above, pt did appear stable for discharge Resident Involvement: Resident Care Provided Care Provided: Adult Hospital Medicine
--- NOTE | 2017-04-09 10:16 | Medical Consult ---
Consultation Date of Consultation: March NOTE: THIS WAS ORIGINALLY COMPLETED ON THE CORRECT DATE BUT ACCIDENTALLY LABELLED HISTORY & PHYSICAL, THOUGH IT WAS A MEDICAL CONSULTATION FROM THE HOSPITALIST SERVICE. Attending Physician: Moncho Arguelles D.O. Reason for Consultation: Medical Management History of Present Illness Mr Real is a 76 yo M who is getting a facetectomy with Dr Arugelles tomorrow for lateral disc herniation L3-4 on the right. He has a hx of hypertension. 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 He reports he is otherwise very active, and denies chest pain or shortness of breath with any exertion. He denies a hx of sleep apnea, and he does not snore, have frequent AM headaches, or stop breathing in his sleep per . His BP is usually well controlled at home, and he takes Losartan and HCTZ. He is not diabetic. He has been reviewed by anesthesia already. Past Medical/Surgical History Medical Problems: (1) Back pain Status: Acute (2) Lumbar disc disease Status: Acute Family History No pertinent FHx Social History Smoking Status: Former Smoker Drug Use: none Marital Status: Housing Status: lives with significant other Occupation Status: retired Allergies Coded Allergies: No Known Allergies (Unverified , 03/26/17) Home Medications Reported Home Medications Medications Dose Route/Sig Max Daily Dose Days Date Category Dose Instructions Oxycodone HCl 5 Mg Tab 5-10 Mg PO Q4H PRN 30 03/28/17 Rx Percocet 5MG/325MG (Oxycodone/Acetaminophen) Tab 1 Tablet PO Q8 PRN 03/26/17 Reported PAIN Ultram (Tramadol HCl) 50 Mg Tab 50 Mg PO Q6 PRN 03/26/17 Reported Voltaren (Diclofenac Sodium) 75 Mg Tabcr 75 Mg PO BID 03/26/17 Reported WITH FOOD Losartan Potassium 50 Mg Tab 50 Mg PO DAILY 03/26/17 Reported Hydrochlorothiazide 25 Mg Tab 25 Mg PO DAILY 03/26/17 Reported Montelukast Sodium (Montelukast Sod) 10 Mg Tab 10 Mg PO QPM 03/26/17 Reported Current Inpatient Medications Diclofenac (Voltaren), 75 MG PO BID Hydrochlorothiazide (Hydrochlorothiazide), 25 MG PO DAILY Losartan Potassium (Losartan Potassium), 50 MG PO DAILY Montelukast Sod (Montelukast Sodium), 10 MG PO QPM Scheduled PRN Oxycodone/Acetaminophen 5MG/325MG (Percocet 5MG/325MG), 1 TABLET PO Q8 PRN for Pain Tramadol (Ultram), 50 MG PO Q6 PRN for Pain Review of Systems A 10 point ROS was negative unless otherwise noted in the HPI. Physical Exam Vital Signs Date Time Temp Pulse Resp B/P (MAP) Pulse Ox O2 Delivery O2 Flow Rate FiO2 03/26/17 18:45 Room Air 03/26/17 18:12 36.9 88 20 177/83 (114) 95 Room Air 03/26/17 17:00 Room Air 03/26/17 17:00 36.7 85 20 171/85 (113) 94 Room Air 03/26/17 16:36 72 16 177/85 97 03/26/17 14:30 78 18 136/66 95 Room Air 03/26/17 12:28 67 18 199/92 97 Room Air GENERAL: Awake, alert, well-appearing, in no acute distress HENT: Normocephalic, atraumatic. Oropharynx unremarkable. EYES: Normal conjunctiva. Sclera non-icteric. NECK: Supple. No nuchal rigidity. FROM. No JVD. RESPIRATORY: Clear to auscultation. CARDIAC: Regular rate, normal rhythm. Extremities warm and well perfused. Pulses equal. ABDOMEN: Soft, non-distended. No tenderness to palpation. No rebound or guarding. No masses. MUSCULOSKELETAL: Chest examination reveals no tenderness. The back is symmetrical on inspection without obvious abnormality. LOWER EXTREMITIES: Calves are equal size bilaterally and non-tender. No edema. No discoloration. NEURO: Normal sensorium. No sensory or motor deficits noted. SKIN: No rash or jaundice noted. Laboratory Results Results Past 24 Hours Test 03/26/17 11:45 03/26/17 18:13 Range/Units White Blood Count 9.55 4.8-10.8 K/uL Red Blood Count 5.50 4.7-6.1 M/uL Hemoglobin 17.1 14.0-18.0 g/dL Hematocrit 48.3 42-52 % Mean Corpuscular Volume 87.8 80-100 fL Mean Corpuscular Hemoglobin 31.1 25-34 pg Mean Corpuscular Hemoglobin Concent 35.4 32-36 g/dl Platelet Count 249 130-400 K/uL Mean Platelet Volume 10.9 7.4-10.4 fL Neutrophils (%) (Auto) 85.2 % Lymphocytes (%) (Auto) 7.5 % Monocytes (%) (Auto) 6.0 % Eosinophils (%) (Auto) 0.7 % Basophils (%) (Auto) 0.1 % Neutrophils # (Auto) 8.13 1.4-6.5 K/uL Lymphocytes # (Auto) 0.72 1.2-3.4 K/uL Monocytes # (Auto) 0.57 0.11-0.59 K/uL Eosinophils # (Auto) 0.07 0-0.5 K/uL Basophils # (Auto) 0.01 0-0.2 K/uL RDW Standard Deviation 43.6 36.4-46.3 fL RDW Coefficient of Variation 13.4 11.5-14.5 % Immature Granulocyte % (Auto) 0.5 % Immature Granulocyte # (Auto) 0.05 0.00-0.02 K/uL Sodium Level 137 137 136-145 mmol/L Potassium Level 3.9 4.3 3.5-5.1 mmol/L Chloride Level 104 104 98-107 mmol/L Carbon Dioxide Level 27 25 21-32 mmol/L Anion Gap 6.0 8.0 3-11 mmol/L Blood Urea Nitrogen 28 30 7-18 mg/dl Creatinine 1.10 1.00 0.60-1.40 mg/dl Est Creatinine Clear Calc Drug Dose 57.0 62.7 ml/min Estimated GFR () 76.2 85.6 Estimated GFR (Non- 65.8 73.8 BUN/Creatinine Ratio 25.6 30.0 10-20 Random Glucose 134 159 70-99 mg/dl Calcium Level 10.3 10.5 8.5-10.1 mg/dl Total Bilirubin 1.0 0.2-1 mg/dl Aspartate Amino Transf (AST/SGOT) 13 15-37 U/L Alanine Aminotransferase (ALT/SGPT) 44 12-78 U/L Alkaline Phosphatase 81 45-117 U/L Total Protein 7.6 6.4-8.2 gm/dl Albumin 4.1 3.4-5.0 gm/dl Globulin 3.5 2.5-4.0 gm/dl Albumin/Globulin Ratio 1.2 0.9-2 Diagnostic Radiology IMPRESSION: 1. Disc bulge with superimposed right foraminal disc protrusion/extrusion at L3-L4 that results in severe narrowing of the right neural foramen with mass effect upon the exiting right L3 nerve root. This could be correlated with right L3 radiculopathy. 2. Study moderately compromised by motion artifact. No central canal stenosis. 3. Mild nonspecific edema of the right paraspinal musculature at the L3-L5 levels. No discrete associated fluid collection. CXR normal EKG Sinus rhythm normal EKG No previous ECGs available Assessment & Plan 76 yo M, for lumbar disc surgery tomorrow with Dr Arguelles. Recommendations: Pre-op clearance: The patient is Class I Risk for the above listed procedure. He has been reviewed by anesthesia. We do not require cardiology clearance prior to his operation. He is also low risk for obstructive sleep apnea. Hypertension: We will hold his blood pressure medications, Losartan and HCTZ. Recommend re-starting post-operatively. DVT Prophylaxis per surgeon. Thank you for this consult. We will continue to follow. Attending Addendum: I have physically seen and examined this patient, have supervised the medical residents activities, and agree with the H&P as noted above with the following exceptions as noted. The patient is awake, well-developed and adequately nourished, alert and oriented 3, normocephalic and atraumatic, lying in bed and in no acute distress. HEENT--PERRL, EOMI, mucous membranes and oropharynx dry. Neck--supple, no JVD or bruits, thyroid normal, trachea midline, no adenopathy. Heart--normal S1 and S2, no extra beats, no murmurs, rubs or gallops. Lungs--clear bilaterally with good air movement, no respiratory distress, no accessory muscle use. Abdomen--normal bowel sounds and soft, nontender and nondistended, no hernias or masses, no organomegaly. Extremities--no cyanosis, clubbing or edema. There are good distal pulses b/l. Dermatologic--normal skin turgor, normal color, warm and dry, no abnormal lymph nodes, no rash. Neurologic--cranial nerves II through XII grossly intact, motor and sensory examination normal. Rheumatologic--normal range of motion, nontender, muscles and joints. Psychiatric--normal affect. Assessment and Plan: 1. Right L3 nerve compression for the OR in the morning by Dr. Arguelles--EKG shows normal sinus rhythm at [address]pm with no acute [address]-T changes, chest x-ray is normal. We'll hold HCTZ due to hypercalcemia. If Calcium persists elevated would order a 25-hydroxy vitamin D, PTH levels and GURVINDER level. If systolic blood pressures greater than 160 and heart rate greater than 70, will give metoprolol tartrate 25 mg by mouth tonight. Systolic blood pressure greater than 160 and heart rate less than 70, will give hydralazine 10 mg IV every 4 hours when necessary. Continue to give losartan 50 mg by mouth daily. Continue Singulair and tramadol as outpatient. 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 Y/N: No Risk Level: Low Resident Tracking Resident Involvement: Resident Care Provided Care Provided: Adult Hospital Medicine
== END 2017-03-29 13:10 | disposition home or self-care (01) | DRG 460 ==
LOC: C.EDB 10:47 → C.MSN 15:04 → ENRESERV 15:16
PROVIDERS: ADMIT Orthopaedic Surgery Orthopaedic Surgery of the Spine; ATTEND Orthopaedic Surgery Orthopaedic Surgery of the Spine
PROC: 0ST20ZZ Resection of Lumbar Vertebral Disc, Open Approach (ICD-10-PCS; principal; 2017-03-27 07:30)
PROC: 0SG00A1 (ICD-10-PCS; principal; 2017-03-27 07:30)
DX: M48.06 Spinal stenosis, lumbar region (principal); M51.16 Intervertebral disc disorders with radiculopathy, lumbar region; M19.90 Unspecified osteoarthritis, unspecified site; I10 Essential (primary) hypertension; Z79.899 Other long term (current) drug therapy; Z87.891 Personal history of nicotine dependence

== ENCOUNTER → 2017-11-02 | Outpatient (CLI) | payer BC, OTHER ==
[2017-11-02 12:51] LABS: HEMOGLOBIN A1C 6.5 % (4.5-5.6)
[2017-11-02 13:14] LABS: ALBUMIN 3.8 gm/dl (3.4-5.0); ALT/SGPT 31 U/L (12-78); AST/SGOT 17 U/L (15-37); BLOOD UREA NITROGEN 12 mg/dl (7-18); CALCIUM 9.7 mg/dl (8.5-10.1); CARBON DIOXIDE 30 mmol/L (21-32); CREATININE 0.78 mg/dl (0.60-1.40); GLUCOSE 138 mg/dl (70-99); POTASSIUM 4.4 mmol/L (3.5-5.1); SODIUM 138 mmol/L (136-145)
[2017-11-02 13:17] LABS: ALKALINE PHOSPHATASE 122 U/L (45-117); CHOLESTEROL 177 mg/dl (0-200); LDL CHOLESTEROL CALCULATED 103 mg/dl; TOTAL PROTEIN 7.5 gm/dl (6.4-8.2)
== END | disposition home or self-care (01) ==
LOC: C.LABMFLN 08:55
PROVIDERS: ATTEND Family Medicine
DX: I10 Essential (primary) hypertension (principal); E11.9 Type 2 diabetes mellitus without complications

== ENCOUNTER 2022-02-19 22:00 | Observation (INO) ==
[2022-02-19] MEDS ORDERED: ONDANSETRON INJ 2 MG/ML 2 ML VIAL IV STA (22:13)
[2022-02-19] MEDS ORDERED: SODIUM CHLORIDE 0.9% 500 ML IV STA (22:13)
[2022-02-19] MEDS ORDERED: KETOROLAC TROMETHAMINE 15 MG/ML VIAL IV STA (22:39)
[2022-02-19] MEDS: fentaNYL citrate 100 MCG/2 ML VIAL IV PRN (22:55)
[2022-02-19 23:18] LABS: Basophils # (auto) 0.01 K/uL (0-0.2); Basophils % (auto) 0.1 %; Eosinophils # (auto) 0.13 K/uL (0-0.5); Eosinophils % (auto) 1.5 %; Hematocrit (blood only) 40.4 % (42-52); Hemoglobin 13.9 g/dL (14.0-18.0); Immature Granulocytes # (auto) 0.03 K/uL (0.00-0.02); Immature Granulocytes % (auto) 0.3 %; Lymphocytes # (auto) 1.58 K/uL (1.2-3.4); Lymphocytes % (auto) 18.1 %; Mean Corpuscular Hemoglobin 30.6 pg (25-34); Mean Corpuscular Hgb Conc 34.4 g/dL (32-36); Mean Platelet Volume 10.4 fL (7.4-10.4); Monocytes % (auto) 4.6 %; Neutrophils # (auto) 6.59 K/uL (1.4-6.5); Neutrophils % (auto) 75.4 %; Platelet Count 213 K/uL (130-400); RDW Coefficient of Variation 13.2 % (11.5-14.5); RDW Standard Deviation 43.4 fL (36.4-46.3); Red Blood Count 4.54 M/uL (4.7-6.1); White Blood Count 8.74 K/uL (4.8-10.8)
[2022-02-19 23:34] LABS: Alanine Aminotransferase 29 U/L (7-52); Albumin Globulin Ratio 1.7 (0.9-2); Albumin Level 4.3 gm/dl (3.4-5.0); Alkaline Phosphatase 74 U/L (34-104); Anion Gap 8 (3-11); Aspartate Aminotransferase 23 U/L (13-39); BUN Creatinine Ratio 18.9 (10-20); Bilirubin,Total 0.6 mg/dl (0.2-1.0); Blood Urea Nitrogen 18 mg/dl (6-23); Calcium 9.4 mg/dl (8.5-10.1); Carbon Dioxide 26 mmol/L (21-32); Chloride 102 mmol/L (98-107); Est GFR (African American) 87.9 ml/min; Est GFR (Non-African American) 75.8 ml/min; Globulin 2.5 gm/dl (2.5-4.0); Glucose 143 mg/dl (70-99(Fasting)); Lipase 11 U/L (11-82); Potassium 3.8 mmol/L (3.5-5.1); Sodium 136 mmol/L (136-145); Total Protein 6.8 gm/dl (6.0-8.3)
--- NOTE | 2022-02-20 00:01 | Emergency Department Note ---
History of Present Illness General Chief complaint: Back Injury/Pain Time Seen by Provider: 02/19/22 22:33 History of Present Illness Maximum Pain Intensity: 2 This 81-year-old presents to the ER complaining of low back pain that radiates down his right leg and with difficulty walking Location: Low back Quality: Painful Severity: Moderate Duration: Today Timing: Today Context: Patient was concerned and came in Modifying factors: better with rest; worse with activity Patient complains of worsening low back pain who has had surgery in the past by Dr. Arguelles. Patient states he is having difficulty walking secondary to the pain. He denies loss of bowel bladder control, saddle anesthesia, fever, chills, IV drug use. Home Medications Medication Instructions Recorded Confirmed Type cholecalciferol (vitamin D3) 25 25 mcg PO QAM 04/09/20 02/19/22 History mcg (1,000 unit) capsule fluticasone propionate 110 2 inh INH BID PRN #12 g 12/09/20 02/19/22 Rx mcg/actuation HFA aerosol inhaler (Flovent HFA) fluticasone propionate 50 2 spray INTRANASAL DAILY PRN #15.8 12/09/20 02/19/22 Rx mcg/actuation nasal ml spray,suspension montelukast 10 mg tablet 10 mg PO QPM #90 tab 03/21/21 02/19/22 Rx albuterol sulfate 90 mcg/actuation 2 inh INHALATION Q4H PRN #8.5 g 10/05/21 02/19/22 Rx aerosol inhaler (Ventolin HFA) hydrochlorothiazide 25 mg tablet 25 mg PO QPM #90 tab 10/27/21 02/19/22 Rx azelastine 137 mcg (0.1 %) nasal 2 spray INTRANASAL BID PRN #30 ml 11/02/21 02/19/22 Rx spray aerosol amlodipine 10 mg tablet 10 mg PO DAILY #90 tab 11/28/21 02/19/22 Rx losartan 100 mg tablet 100 mg PO QPM #90 tab 12/21/21 02/19/22 Rx rosuvastatin 5 mg tablet 5 mg PO DAILY #90 tab 12/22/21 02/19/22 Rx Allergies Allergy/AdvReac Type Severity Reaction Status Date / Time No Known Allergies Allergy Verified 02/19/22 22:25 Past Med/Surg History Medical History Asthma rare use PRN inh Benign essential hypertension Chronic SI joint pain DM type 2 (diabetes mellitus, type 2) diet controlled History of acoustic neuroma HLD (hyperlipidemia) no meds SELDOVIA (hard of hearing) Rt ear Lumbar spondylosis Osteoporosis Paget disease of bone Travel advice encounter Surgical History H/O cataract extraction Dr. Botello - Rt eye H/O hernia repair History of lumbar fusion History of tonsillectomy History of tooth extraction Status post excision of acoustic neuroma Family History Father Dementia Other No family history of adverse response to anesthesia No significant family history Social History Smoking Status: Former smoker Second Hand Exposure: No; Hx Alcohol Use: Yes Alcohol type: beer and wine Hx Substance Use: No Preferred Language: Chadian Communication Ability: Effective Slip Caster Required: No Beliefs That Will Affect Care: None marital status: Current Living Situation: Spouse current occupational status: retired Feels Safe at Home: Yes Seatbelt Use: sometimes Assistive Devices: Glasses Review of Systems A total of 10 systems reviewed and were otherwise negative Physical Exam Vital Signs Vital Signs - 24 hr 02/19/22 22:02 02/19/22 23:04 02/20/22 00:48 Temperature 36.0 C L Temperature Source Temporal Artery Scan Pulse Rate 96 H 62 55 L Pulse Rate [Right Finger] Pulse Rate from SpO2 Sensor 62 52 L Respiratory Rate 18 18 13 Respiratory Effort / Characteristics Non-Labored Spontaneous Respiratory Depth Normal Respiratory Pattern Regular Blood Pressure 125/65 103/56 L Blood Pressure [Right Arm] Blood Pressure Mean 85 71 Blood Pressure Mean [Right Arm] Blood Pressure Position Sitting Pulse Oximetry 97 97 95 Oxygen Delivery Method Room Air Room Air Room Air Sepsis Recent Fever Within 48 Hours No Sepsis New/Unexplained Change in Mental Status N/A Sepsis Action Taken by Nursing No Action Required 02/20/22 01:56 02/20/22 03:44 02/20/22 04:25 Temperature Temperature Source Pulse Rate 58 L Pulse Rate [Right Finger] 62 59 L Pulse Rate from SpO2 Sensor Respiratory Rate 17 20 20 Respiratory Effort / Characteristics Respiratory Depth Respiratory Pattern Blood Pressure 122/57 L Blood Pressure [Right Arm] 142/70 H 134/68 Blood Pressure Mean 78 Blood Pressure Mean [Right Arm] 94 90 Blood Pressure Position Pulse Oximetry 96 98 93 Oxygen Delivery Method Room Air Room Air Room Air Sepsis Recent Fever Within 48 Hours Sepsis New/Unexplained Change in Mental Status Sepsis Action Taken by Nursing VITALS: Vitals are noted on the nurse's note and reviewed by myself. Vital signs stable. GENERAL: Pleasant patient, in no acute distress, nondiaphoretic, well-developed well-nourished. SKIN: The skin was without rashes, erythema, edema, or bruising. There is no tenting of the skin. Capillary reflex less than 2 seconds. HEAD: Normocephalic atraumatic. EARS: External auditory canals clear, EYES: Pupils equal round and reactive to light and accommodation. Conjunctivae without injection, sclerae without icterus. Extraocular movements intact. NOSE: Patent, turbinates without inflammation or discharge. MOUTH: Mucous membranes moist. Pharynx without erythema or exudate. Uvula midline. Airway patent. Tongue does not deviate. NECK: Supple without nuchal rigidity. No lymphadenopathy. No thyromegaly. C ervical spine is nontender. No JVD. HEART: Regular rate and rhythm LUNGS: Clear to auscultation bilaterally without wheezes, rales or rhonchi. No retractions or accessory muscle use. ABDOMEN: Positive bowel sounds x 4. Normal tympanic percussion. Soft, nontender, without masses or organomegaly. Ross sign negative. No guarding or rebound tenderness. No CVA tenderness MUSCULOSKELETAL: No muscle atrophy, erythema, or edema noted. No thoracic pain. Lumbar tenderness increased on the right with a positive straight leg raise on the right. Reflexes intact. Patient can plantarflex and dorsiflex. NEURO: Patient was alert and oriented to person place and time. Normal sensation to light and sharp touch. No focal neurological deficits. Course Administered Medications Fentanyl Citrate (Fentanyl Citrate 100 Mcg/2 Ml Vial) 50 mcg IV Q15M PRN PRN Reason: Pain Stop: 03/05/22 22:12 Last Admin: 02/20/22 04:26 Dose: 50 mcg Documented by: [id number] Admin: 02/19/22 22:55 Dose: 50 mcg Documented by: [id number] Discontinued Medications Sodium Chloride (Nss) 500 mls @ 999 mls/hr IV .Q31M STA Stop: 02/19/22 22:43 Last Infusion: 02/19/22 23:33 Dose: 0 mls/hr Documented by: [id number] Admin: 02/19/22 22:54 Dose: 999 mls/hr Documented by: [id number] Acetaminophen (Ofirmev) 1,000 mg in 100 mls @ 400 mls/hr IV NOW STA Stop: 02/20/22 02:11 Last Infusion: 02/20/22 02:30 Dose: 0 mls/hr Documented by: [id number] Admin: 02/20/22 02:06 Dose: 400 mls/hr Documented by: [id number] Ketorolac Tromethamine (Ketorolac Tromethamine 15 Mg/Ml Vial) 10 mg IV NOW STA Stop: 02/19/22 22:40 Last Admin: 02/19/22 22:57 Dose: 10 mg Documented by: [id number] Methylprednisolone (Methylprednisolone 125 Mg/2 Ml Vial) 125 mg IV NOW STA Stop: 02/20/22 05:12 Last Admin: 02/20/22 05:33 Dose: 125 mg Documented by: [id number] Ondansetron HCl (Ondansetron Inj 2 Mg/Ml 2 Ml Vial) 4 mg IV NOW STA Stop: 02/19/22 22:14 Last Admin: 02/19/22 22:54 Dose: 4 mg Documented by: [id number] Medical Decision Making Medical Records Attestation: I reviewed the patient's medical records. Home Medications Current Medication List: was personally reviewed by me Laboratory Data Attestation: I reviewed the patient's lab results. Result diagrams: 02/19/22 23:01 02/19/22 23:01 Lab Results 02/19/22 02/19/22 02/20/22 Range/Units 23:01 23:01 04:59 WBC 8.74 (4.8-10.8) K/uL RBC 4.54 L (4.7-6.1) M/uL Hgb 13.9 L (14.0-18.0) g/dL Hct 40.4 L (42-52) % MCV 89.0 (80-100) fL MCH 30.6 (25-34) pg MCHC 34.4 (32-36) g/dL RDW Std Deviation 43.4 (36.4-46.3) fL RDW Coeff of Shailesh 13.2 (11.5-14.5) % Plt Count 213 (130-400) K/uL MPV 10.4 (7.4-10.4) fL Immature Gran % (Auto) 0.3 % Neut % (Auto) 75.4 % Lymph % (Auto) 18.1 % Wallace % (Auto) 4.6 % Eos % (Auto) 1.5 % Baso % (Auto) 0.1 % Neut # (Auto) 6.59 H (1.4-6.5) K/uL Lymph # (Auto) 1.58 (1.2-3.4) K/uL Wallace # (Auto) 0.40 (0.11-0.59) K/uL Eos # (Auto) 0.13 (0-0.5) K/uL Baso # (Auto) 0.01 (0-0.2) K/uL Immature Gran # (Auto) 0.03 H (0.00-0.02) K/uL Sodium 136 (136-145) mmol/L Potassium 3.8 (3.5-5.1) mmol/L Chloride 102 (98-107) mmol/L Carbon Dioxide 26 (21-32) mmol/L Anion Gap 8 (3-11) BUN 18 (6-23) mg/dl Creatinine 0.95 (0.6-1.4) mg/dl Est Cr Clr Drug Dosing Not Reportable Est GFR ( Amer) 87.9 ml/min Est GFR (Non-Af Amer) 75.8 ml/min BUN/Creatinine Ratio 18.9 (10-20) Glucose 143 H (70-99(Fasting)) mg/dl Calcium 9.4 (8.5-10.1) mg/dl Total Bilirubin 0.6 (0.2-1.0) mg/dl AST 23 (13-39) U/L ALT 29 (7-52) U/L Alkaline Phosphatase 74 (34-104) U/L Total Protein 6.8 (6.0-8.3) gm/dl Albumin 4.3 (3.4-5.0) gm/dl Globulin 2.5 (2.5-4.0) gm/dl Albumin/Globulin Ratio 1.7 (0.9-2) Lipase 11 (11-82) U/L SARS-CoV-2, RNA, NAAT NEGATIVE (NEGATIVE) Imaging Data Attestation: I personally reviewed and interpreted this imaging study as follows: MDM Narrative Prior records/ancillary studies reviewed. Triage Nursing notes reviewed. Additional history obtained from family. The patient's history was concerning for back pain. Differential diagnosis: Etiologies such as musculoskeletal, disc herniation, fracture, aortic disease, metastatic disease, cord compression, discitis, infection, renal colic, gastroin testinal, acute exacerbation of chronic back pain, sciatica, cauda equina, as well as others were entertained. Physical findings: As above. No focal neurologic findings noted. ER treatment provided: Toradol, Tylenol, Solu-Medrol, fentanyl Apparently patient sustained a skin tear without an MRI machine. Wound was cleansed and dressed by nursing. On reassessment the patient felt better. Diagnostics interpreted by me: The labs revealed mild hyperglycemia. Mild anemia. Imaging studies: MRI L SPINE : Abnormal T2 signal of the paraspinous soft tissues at the site of the patient's L3 laminectomies. This may be infectious or inflammatory. This surrounds the posterior hardware. No fracture or malalignment. There are degenerative changes of the spine without significant spinal canal stenosis. Radiologist: Vinita Gilmore MD Consultation: A consultation was placed with hospitalist. The case was discussed and diagnostics were reviewed. Medicine will evaluate. This appears to be consistent with lumbar radiculopathy. MRI was reviewed. No surgical emergency. Still in severe amount of pain and had difficulty ambu lating. He did request admission. Medicine was consulted. Patient does not have any signs or symptoms of infection. I believe this is more an inflammatory response. His symptoms started after he twisted wrong. By the evaluation outlined above emergent etiologies such as fracture, aortic disease, metastatic disease, renal colic, gastrointestinal, cord compression, cauda equina, as well as others were deemed relatively unlikely. The pt informed about the findings as listed above. All questions were answered and pleased with the treatment. The chart was completed utilizing [email or web address] voice recognition software. Grammatical errors, random word insertions, pronoun errors, and incomplete sentences are an occassional consequence of this system due to software limitations, ambient noise, and hardware issues. Any formal questions or concerns about the content, text, or information contained within the body of this dictation should be directly addressed to the physician intellectual property legal assistant for clarification. Impression & Plan Lumbar radiculopathy, Intractable low back pain Discharge Plan Visit Data Chief Complaint: Back Injury/Pain ED Provider: Deangelo Mix ED Midlevel Provider: Ericka Yee Discharge Problem: Lumbar radiculopathy, Intractable low back pain Patient Disposition: Admitted As Inpatient Condition: Good Forms Stand Alone Forms: My [facility] [employer] Prescriptions Prescriptions: No Action fluticasone propionate 50 mcg/actuation spray,suspension 2 spray intranasal DAILY PRN (Reason: ud) Qty: 15.8 RF: 3 Flovent HFA 110 mcg/actuation HFA aerosol inhaler 2 inh INH BID PRN (Reason: sob) Qty: 12 RF: 3 montelukast 10 mg tablet 10 mg PO QPM Qty: 90 RF: 3 albuterol sulfate [Ventolin HFA] 90 mcg/actuation HFA aerosol inhaler 2 inh inhalation Q4H PRN (Reason: shortness of breath or wheezing) Qty: 8.5 RF: 3 hydrochlorothiazide 25 mg tablet 25 mg PO QPM Qty: 90 RF: 3 azelastine 137 mcg (0.1 %) aerosol,spray 2 spray intranasal BID PRN (Reason: nasal congestion) Qty: 30 RF: 11 amlodipine 10 mg tablet 10 mg PO DAILY Qty: 90 RF: 3 losartan 100 mg tablet 100 mg PO QPM Qty: 90 RF: 3 cholecalciferol (vitamin D3) 25 mcg (1,000 unit) capsule 25 mcg PO QAM RF: 0 rosuvastatin 5 mg tablet 5 mg PO DAILY Qty: 90 RF: 3 Referrals Referrals: Kenneth Pinzon MD [Primary Care Provider] -
[2022-02-20] MEDS ORDERED: ACETAMINOPHEN 1,000 MG/100 ML VIAL IV STA (01:57)
[2022-02-20] MEDS: fentaNYL citrate 100 MCG/2 ML VIAL IV PRN (04:26)
[2022-02-20] MEDS ORDERED: methylPREDNISolone 125 MG/2 ML VIAL IV STA (05:11)
--- NOTE | 2022-02-20 06:33 | History & Physical Report ---
Date of Service February 20, 2022 Assessment & Plan (1) Intractable low back pain: Plan: 81 y/o M Hx HTN, HLD, DM II, lumbar fusion. Presents with progressive lower back vega x 203 days. He is unable to ambulate due to the pain. He denies LE numbness or weakness. Denies fevers or incontinence. Labs were unremarkable. Lumbar MRI demonstrated inflammation vs an infectious process. 1) Intractable lower back pain - pt is unable to mobilize. We will provide analgesics and muscle relaxants. He received dexamethasone in the ER. He will be evaluated by his orthopedist. Clinically, we do not suspect an infectious process at present. 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 Presents with progressive lower back vega x 203 days. He is unable to ambulate due to the pain. He denies LE numbness or weakness. Denies fevers or incontinence. Labs were unremarkable. Lumbar MRI demonstrated inflammation vs an infectious process. PMH: 1) HTN 2) HLD 3) Diet-controlled DM 4) Chronic lower back pain 5) Acoustic neuroma R Surgical: 1) Lumbar fusion with hardware placement 2015 2) Acoustic neuroma resection 3) Hernia repair Social: Distant smoking history, occasional ETOH Family: Father - Alzheimer dementia Mother "old age" Allergies Allergy/AdvReac Type Severity Reaction Status Date / Time No Known Allergies Allergy Verified 02/19/22 22:25 Home Medications Medication Instructions Recorded Confirmed Type cholecalciferol (vitamin D3) 25 25 mcg PO QAM 04/09/20 02/19/22 History mcg (1,000 unit) capsule fluticasone propionate 110 2 inh INH BID PRN #12 g 12/09/20 02/19/22 Rx mcg/actuation HFA aerosol inhaler (Flovent HFA) fluticasone propionate 50 2 spray INTRANASAL DAILY PRN #15.8 12/09/20 02/19/22 Rx mcg/actuation nasal ml spray,suspension montelukast 10 mg tablet 10 mg PO QPM #90 tab 03/21/21 02/19/22 Rx albuterol sulfate 90 mcg/actuation 2 inh INHALATION Q4H PRN #8.5 g 10/05/21 02/19/22 Rx aerosol inhaler (Ventolin HFA) hydrochlorothiazide 25 mg tablet 25 mg PO QPM #90 tab 10/27/21 02/19/22 Rx azelastine 137 mcg (0.1 %) nasal 2 spray INTRANASAL BID PRN #30 ml 11/02/21 02/19/22 Rx spray aerosol amlodipine 10 mg tablet 10 mg PO DAILY #90 tab 11/28/21 02/19/22 Rx losartan 100 mg tablet 100 mg PO QPM #90 tab 12/21/21 02/19/22 Rx rosuvastatin 5 mg tablet 5 mg PO DAILY #90 tab 12/22/21 02/19/22 Rx Past Med/Surg History Medical History Asthma rare use PRN inh Benign essential hypertension Chronic SI joint pain DM type 2 (diabetes mellitus, type 2) diet controlled History of acoustic neuroma HLD (hyperlipidemia) no meds KLUTI KAAH (hard of hearing) Rt ear Lumbar spondylosis Osteoporosis Paget disease of bone Travel advice encounter Surgical History H/O cataract extraction Dr. Botello - Rt eye H/O hernia repair History of lumbar fusion History of tonsillectomy History of tooth extraction Status post excision of acoustic neuroma Family History Father Dementia Other No family history of adverse response to anesthesia No significant family history Social History Smoking Status: Former smoker Second Hand Exposure: No; Hx Alcohol Use: Yes Alcohol type: beer and wine Hx Substance Use: No Preferred Language: Maltese Communication Ability: Effective Concrete Curer Required: No Beliefs That Will Affect Care: None marital status: Current Living Situation: Spouse current occupational status: retired Feels Safe at Home: Yes Seatbelt Use: sometimes Assistive Devices: Glasses Review of Systems Review of Systems: Gen: Denies fevers, night sweats, rigors, fatigue, malaise, weight loss/gain ENT: Denies congestion, throat pain, hearing loss Eyes: Denies acute visual changes CV: Denies CP, palpitations Pulmonary: Denies SOB, cough, wheezing GI: Denies N/V, diarrhea, constipation Neuro: Denies acute or unilateral weakness, acute gait impairment, headache or acute visual changes Musculoskeletal: Severe lower back pain Endocrine: Denies polydipsia, polyuria Skin: Denies acute rashes or ulcers Physical Exam Physical Exam: General: AAO x 3, no distress ENT: No erythema or exudates, no thrush Eyes: JUAN, EOMI Head and neck: Normocephalic, atraumatic, No JVD, neck is supple. Chest/heart: Nontender, S1,2, RRR, no murmurs, no gallops Lungs: CTAB, no wheezing or crackles Abdomen: Nontender, nondistended, BS+ Neuro: AAO x 3, speech is clear, no unilateral weakness or loss of sensation, coordination intact Musculoskeletal: Any movement elicits severe pain. There is no discernable wekaness or numbness in the lower extremities. Skin: No acute rashes or ulcers Extremities: No clubbing, cyanosis, edema Results & Data Results & Data ([facility]) Vital Signs (Past 12 Hours) Vital Signs Temp Pulse Pulse Resp BP BP Pulse Ox 02/20/22 06:00 62 20 128/65 98 02/20/22 04:25 59 L 20 134/68 134/68 93 02/20/22 03:44 62 20 142/70 H 98 02/20/22 01:56 58 L 17 122/57 L 96 02/20/22 00:48 55 L 13 103/56 L 95 02/19/22 23:04 62 18 97 02/19/22 22:02 96.8 F L 96 H 18 125/65 97 PG Care Time/CCT Total # of Minutes Spent Total Time Spent with Patient: Total time spent is greater than 50% in coordination of care (as documented) at patient's floor/unit and/or counseling patient: Coding Level of Care Code INT OBSERVATION CARE 50M LVL 2 Diagnoses Intractable low back pain M54.59 Benign essential hypertension I10 HLD (hyperlipidemia) E78.5 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
[2022-02-20] MEDS ORDERED: HYDROmorphone INJ 0.5 MG/0.5 ML SYR IV PRN ×2 (06:40→16:04)
[2022-02-20] MEDS ORDERED: CYCLOBENZAPRINE HCL 5 MG TAB PO PRN (06:40)
[2022-02-20] MEDS ORDERED: LACTATED RINGER'S 1,000 ML IV STA (06:50)
--- NOTE | 2022-02-20 07:28 | Hospitalist Progress Note ---
Date of Service February 20, 2022 Assessment & Plan (1) Intractable low back pain: Plan: 81 y/o M Hx HTN, HLD, DM II, lumbar fusion. Presents with progressive lower back vega x 203 days. He is unable to ambulate due to the pain. He denies LE numbness or weakness. Denies fevers or incontinence. Labs were unremarkable. Lumbar MRI demonstrated inflammation vs an infectious process. 1) Intractable lower back pain - pt is unable to mobilize. Scheduled Tylenol dexamethasone opiates parenterally and orally lidocaine patch. Clinically, we do not suspect an infectious process at present. 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: (5) Dyslipidemia: Subjective Patient still has significant left-sided low back pain which actually radiates cephalad does not have any radicular symptoms down his leg at this time Results & Data Results & Data ([facility]) Vital Signs (Past 12 Hours) Vital Signs Temp Pulse Pulse Resp BP BP Pulse Ox 02/20/22 06:59 70 18 128/65 95 02/20/22 06:00 62 20 128/65 98 02/20/22 04:25 59 L 20 134/68 134/68 93 02/20/22 03:44 62 20 142/70 H 98 02/20/22 01:56 58 L 17 122/57 L 96 02/20/22 00:48 55 L 13 103/56 L 95 02/19/22 23:04 62 18 97 02/19/22 22:02 96.8 F L 96 H 18 125/65 97 PG Care Time/CCT Total # of Minutes Spent Total Time Spent with Patient: Total time spent is greater than 50% in coordination of care (as documented) at patient's floor/unit and/or counseling patient: Coding Level of Care Code None Diagnoses Intractable low back pain M54.59 Benign essential hypertension I10 HLD (hyperlipidemia) E78.5 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
[2022-02-20 07:50] LABS: Appearance Urine Clear (Clear); Bilirubin Urine Negative (Negative); Blood Urine Negative (Negative); Color Urine Yellow; Glucose Urine UA Negative (Negative); Ketones Urine Trace (Negative); Leukocyte Esterase Urine Negative (Negative); Nitrite Urine Negative (Negative); Protein Urine Negative (Negative); Specific Gravity Urine 1.023 (1.000-1.030); Urobilinogen Urine Negative (Negative)
[2022-02-20] MEDS ORDERED: ALBUTEROL HFA 8 GM INHALER INH PRN (08:11)
[2022-02-20] MEDS ORDERED: FLUTICASONE HFA 110MCG INHALER INH PRN (08:11)
--- NOTE | 2022-02-20 08:17 | Magnetic Resonance Report ---
MR lumbar spine wo con: CLINICAL HISTORY: 81 years-old Male with severe pain, dif walking, pain down right leg. Acute severe low back pain with history of prior lumbar spine surgery. COMPARISON: Radiographs 05/16/2019, MRI lumbar spine 03/26/2017. TECHNIQUE: Multiplanar, multi sequence MRI of the lumbar spine was performed without intravenous cont rast. FINDINGS: Atrophy with cortical thinning of the kidneys. The spleen appears enlarged. Distended urinary bladder . No abdominal aortic aneurysm or lymphadenopathy. No significant bone marrow or soft tissue edema. N o acute fracture, subluxation, endplate erosion or suspicious bone lesion. A 2.6 cm L1 vertebral body hemangioma. Prior L3-L4 laminectomy with posterior interbody nate and screw fusion with discectomy. Mild edema is noted within the soft tissues at the laminectomy bed which is likely an expected postoperative findin g. No postoperative fluid collections. T12-L1: Mild intervertebral disc space narrowing with anterior endplate predominant spondylitic spur ring and mild facet arthrosis. No central canal or neural foraminal stenosis. Unchanged. L1-L2: Mild to moderate intervertebral disc space narrowing with associated anterior endplate predom inant spondylitic spurring and mild facet arthrosis. No central canal or neural foraminal stenosis. U nchanged. L2-L3: Mild intervertebral disc space narrowing with associated anterior endplate predominant spondy litic spurring and mild to moderate facet arthrosis. No central canal or neural foraminal stenosis. U nchanged. L3-L4: Prior discectomy with laminectomy, anterior nate and screw fusion. 2 mm retrolisthesis with mi ld spondylitic spurring and moderate facet arthrosis. The central canal and left neural foramen are p atent. There is at least mild right foraminal stenosis, suboptimally visualized secondary to the susc eptibility artifact. L4-L5: Mild intervertebral disc space narrowing with spondylitic spurring and small circumferential annular disc bulge. Ligamentum flavum thickening with moderate facet arthrosis. Flattening of the beryl tral thecal sac without significant central canal stenosis. Mild left with mild to moderate right lester ral foraminal narrowing. These findings have mildly worsened from the prior study. L5-S1: Mild intervertebral disc space narrowing with spondylitic spurring and small circumferential annular disc bulge. Ligamentum flavum thickening with moderate to severe facet arthrosis. The central canal is patent. Mild to moderate bilateral neural foraminal narrowing has mildly progressed. IMPRESSION: 1. Motion degraded exam. No acute fracture or bone marrow edema. 2. Prior laminectomy with discectomy, posterior interbody nate and screw fusion at L3-L4. 3. Discogenic degeneration with spondylotic spurring and facet arthrosis resulting in multilevel neur al foraminal narrowing as above. 4. No significant central canal stenosis. ACT 112: Negative or not required by law. The above report was generated using voice recognition software. It may contain grammatical, syntax o r spelling errors. Dictated: 02/20/2022 7:07 AM Transcribed: 02/20/2022 8:12 AM Gabriela [id number] [facility] Electronically signed by: Negrito Rao M.D. 02/20/2022 8:16 AM
[2022-02-20] MEDS: ENOXAPARIN INJ 40 MG/0.4 ML SYR SQ SCH (09:13)
[2022-02-20] MEDS: amLODIPine BESYLATE 5 MG TAB PO SCH (09:13)
[2022-02-20] MEDS: ROSUVASTATIN CALCIUM 5 MG TAB PO SCH (09:13)
[2022-02-20] MEDS ORDERED: oxyCODONE HCL IR 5 MG TAB (IMMEDIATE RELEASE) PO PRN (16:03)
[2022-02-20] MEDS: LIDOCAINE 5% 1 PATCH TD SCH (16:22)
[2022-02-20] MEDS: ACETAMINOPHEN 500 MG TAB PO SCH (20:42)
[2022-02-20] MEDS ORDERED: MONTELUKAST SODIUM 10 MG TABLET PO SCH (21:00)
[2022-02-20] MEDS ORDERED: hydroCHLOROthiazide 25 MG TAB PO SCH (21:00)
[2022-02-20] MEDS ORDERED: LOSARTAN POTASSIUM 50 MG TAB PO SCH (21:00)
[2022-02-21] MEDS: ACETAMINOPHEN 500 MG TAB PO SCH ×2 (08:14→15:12)
[2022-02-21] MEDS: LIDOCAINE 5% 1 PATCH TD SCH (08:15)
[2022-02-21] MEDS: amLODIPine BESYLATE 5 MG TAB PO SCH (08:15)
[2022-02-21] MEDS: ROSUVASTATIN CALCIUM 5 MG TAB PO SCH (08:15)
[2022-02-21] MEDS: ENOXAPARIN INJ 40 MG/0.4 ML SYR SQ SCH (08:16)
[2022-02-21] MEDS ORDERED: dexAMETHasone 4 MG in SYRINGE 0 ML IV SCH (09:00)
--- NOTE | 2022-02-21 10:39 | XRay Report ---
LUMBAR SPINE 3 VIEWS CLINICAL HISTORY: Left-sided low back pain. Stiffness. FINDINGS: 3 views of the lumbar spine compared to study dated 05/16/2019 and correlated with MRI of [facility] dated 02/20/2022. The skeletal structures are osteopenic. There is no radiographic evidence of acute fracture or malalignment. Vertebral body height is maintained. There is minimal retrolisthes is at L3-L4 and minimal anterolisthesis at L5-S1. Alignment is otherwise preserved. Anterior and late ral marginal osteophytes are seen throughout. There is postoperative change from discectomy at L3-L4 with laminectomy and posterior fusion with interposition bone graft at this level. The orthopedic juan c dware appears intact. The transverse processes appear intact. Facet arthropathy is noted in the lower lumbar region. There is mild to moderate multilevel degenerative disc space narrowing. The visualize d bony pelvis appears intact. Sclerotic change is noted in the sacroiliac joints with partial fusion on the right. There is a nonobstructed abdominal bowel gas pattern. Advanced atherosclerotic calcific ation is noted in the abdominal aorta. There is a 1.4 cm nonobstructing left renal calculus. Suture m aterial projects over the left pelvis. IMPRESSION: 1. No acute bony abnormality is seen involving the lumbar spine. 2. Osteopenia with postoperative and spondylotic change as above. This is similar to the 05/16/2019 ex amination. 3. Left-sided nephrolithiasis. Electronically signed by: Kenneth Ortiz M.D. 02/21/2022 10:37 AM
--- NOTE | 2022-02-21 12:17 | Orthopedic Consultation ---
Date of Consultation February 21, 2022 Assessment & Plan (1) Chronic SI joint pain: Assessment sacroiliitis. Plan at this time I believe majority of symptom complex is involving the left SI joint. If his symptoms return or become incapacitating again have requested that he notify us at which point he may be a candidate for a left SI joint injection. Patient stands agrees. He is stable for discharge today per orthopedics. History of Present Illness Reason for Consultation: Lumbosacral back pain Attending Physician: Silver Aguilera MD History of Present Illness This is a very pleasant 81-year-old male who presents with fairly significant lumbosacral back pain. He does have a history of traveling recently to [place]. This involves several hours in the car and prolonged sitting. He feels this contributed to his issues. He describes pain specifically on the left lumbosacral junction along the left SI joint. The right side is asymptomatic. There is no midline discomfort. He has no numbness or tingling into the lower extremities. Denies any change in bowel bladder function. Denies any trauma f all or event. Allergies Allergy/AdvReac Type Severity Reaction Status Date / Time No Known Allergies Allergy Verified 02/19/22 22:25 Home Medications Medication Instructions Recorded Confirmed Type cholecalciferol (vitamin D3) 25 25 mcg PO QAM 04/09/20 02/19/22 History mcg (1,000 unit) capsule fluticasone propionate 110 2 inh INH BID PRN #12 g 12/09/20 02/19/22 Rx mcg/actuation HFA aerosol inhaler (Flovent HFA) fluticasone propionate 50 2 spray INTRANASAL DAILY PRN #15.8 12/09/20 02/19/22 Rx mcg/actuation nasal ml spray,suspension montelukast 10 mg tablet 10 mg PO QPM #90 tab 03/21/21 02/19/22 Rx albuterol sulfate 90 mcg/actuation 2 inh INHALATION Q4H PRN #8.5 g 10/05/21 02/19/22 Rx aerosol inhaler (Ventolin HFA) hydrochlorothiazide 25 mg tablet 25 mg PO QPM #90 tab 10/27/21 02/19/22 Rx azelastine 137 mcg (0.1 %) nasal 2 spray INTRANASAL BID PRN #30 ml 11/02/21 02/19/22 Rx spray aerosol amlodipine 10 mg tablet 10 mg PO DAILY #90 tab 11/28/21 02/19/22 Rx losartan 100 mg tablet 100 mg PO QPM #90 tab 12/21/21 02/19/22 Rx rosuvastatin 5 mg tablet 5 mg PO DAILY #90 tab 12/22/21 02/19/22 Rx Patient History Medical History Asthma rare use PRN inh Benign essential hypertension Chronic SI joint pain DM type 2 (diabetes mellitus, type 2) diet controlled History of acoustic neuroma HLD (hyperlipidemia) no meds COUNCIL (hard of hearing) Rt ear Lumbar spondylosis Osteoporosis Paget disease of bone Travel advice encounter Surgical History H/O cataract extraction Dr. Botello - Rt eye H/O hernia repair History of lumbar fusion History of tonsillectomy History of tooth extraction Status post excision of acoustic neuroma Family History Father Dementia Other No family history of adverse response to anesthesia No significant family history Social History Smoking Status: Former smoker Smoking End Date: 40 years ago; Second Hand Exposure: No; Do You Dip or Chew Tobacco: No; Hx Alcohol Use: Yes Alcohol type: beer and hard liquor Hx Substance Use: No Preferred Language: Korean Communication Ability: Effective Healthcare Prof Required: No Beliefs That Will Affect Care: None marital status: Current Living Situation: Spouse current occupational status: retired Other Information That Helps Us Care for You: No Feels Safe at Home: Yes Safety Concerns: Feels Safe At This Time Seatbelt Use: sometimes Assistive Devices: Glasses Physical Exam Physical Exam: On exam is able to stand and ambulate about the room with a narrow steady gait. He has excellent strength testing. No sensory deficits. There are some tenderness palpation over the left SI joint compared to the right. Results & Data ([facility]) Vital Signs (Past 12 Hours) Vital Signs Temp Pulse Resp BP Pulse Ox 02/21/22 08:21 36.3 C L 73 16 171/78 H 98
--- NOTE | 2022-02-21 18:31 | Discharge Summary ---
Date of Service February 21, 2022 Admission HPI Per Admitting Provider 81 y/o M Hx HTN, HLD, DM II, lumbar fusion. Presents with progressive lower back vega x 203 days. He is unable to ambulate due to the pain. He denies LE numbness or weakness. Denies fevers or incontinence. Labs were unremarkable. Lumbar MRI demonstrated inflammation vs an infectious process. PMH: 1) HTN 2) HLD 3) Diet-controlled DM 4) Chronic lower back pain 5) Acoustic neuroma R Surgical: 1) Lumbar fusion with hardware placement 2015 2) Acoustic neuroma resection 3) Hernia repair Social: Distant smoking history, occasional ETOH Family: Father - Alzheimer dementia Mother "old age" Principal Diagnosis Radicular back pain resolved Discharge Exam The patient appeared stable he is able to walk about the room his is present at the bedside Vital signs as documented. Extremities are nonedematous and both Neurologic exam is alert and oriented, no focal loss of strength or sensation Discharge Data Allergies Allergy/AdvReac Type Severity Reaction Status Date / Time No Known Allergies Allergy Verified 02/19/22 22:25 Consultations 02/20/22 05:45 ED Decision to Admit Stat 02/21/22 07:08 Consult Orthopedic Surgery Routine Ordered Studies 02/20/22 22:39 MR lumbar spine wo con Stat Lumbar Spine MRI 02/20/22 22:39 MR lumbar spine wo con: CLINICAL HISTORY: 81 years-old Male with severe pain, dif walking, pain down right leg. Acute severe low back pain with history of prior lumbar spine surgery. COMPARISON: Radiographs 05/16/2019, MRI lumbar spine 03/26/2017. TECHNIQUE: Multiplanar, multi sequence MRI of the lumbar spine was performed without intravenous contrast. FINDINGS: Atrophy with cortical thinning of the kidneys. The spleen appears enlarged. Distended urinary bladder. No abdominal aortic aneurysm or lymphadenopathy. No significant bone marrow or soft tissue edema. No acute fracture, subluxation, endplate erosion or suspicious bone lesion. A 2.6 cm L1 vertebral body hemangioma. Prior L3-L4 laminectomy with posterior interbody nate and screw fusion with discectomy. Mild edema is noted within the soft tissues at the laminectomy bed which is likely an expected postoperative finding. No postoperative fluid collections. T12-L1: Mild intervertebral disc space narrowing with anterior endplate predominant spondylitic spurring and mild facet arthrosis. No central canal or neural foraminal stenosis. Unchanged. L1-L2: Mild to moderate intervertebral disc space narrowing with associated anterior endplate predominant spondylitic spurring and mild facet arthrosis. No central canal or neural foraminal stenosis. Unchanged. L2-L3: Mild intervertebral disc space narrowing with associated anterior endplate predominant spondylitic spurring and mild to moderate facet arthrosis. No central canal or neural foraminal stenosis. Unchanged. L3-L4: Prior discectomy with laminectomy, anterior nate and screw fusion. 2 mm retrolisthesis with mild spondylitic spurring and moderate facet arthrosis. The central canal and left neural foramen are patent. There is at least mild right foraminal stenosis, suboptimally visualized secondary to the susceptibility artifact. L4-L5: Mild intervertebral disc space narrowing with spondylitic spurring and small circumferential annular disc bulge. Ligamentum flavum thickening with moderate facet arthrosis. Flattening of the ventral thecal sac without significant central canal stenosis. Mild left with mild to moderate right neural foraminal narrowing. These findings have mildly worsened from the prior study. L5-S1: Mild intervertebral disc space narrowing with spondylitic spurring and small circumferential annular disc bulge. Ligamentum flavum thickening with moderate to severe facet arthrosis. The central canal is patent. Mild to moderate bilateral neural foraminal narrowing has mildly progressed. IMPRESSION: 1. Motion degraded exam. No acute fracture or bone marrow edema. 2. Prior laminectomy with discectomy, posterior interbody nate and screw fusion at L3-L4. 3. Discogenic degeneration with spondylotic spurring and facet arthrosis resulting in multilevel neural foraminal narrowing as above. 4. No significant central canal stenosis. ACT 112: Negative or not required by law. The above report was generated using voice recognition software. It may contain grammatical, syntax or spelling errors. Dictated: 02/20/2022 7:07 AM Transcribed: 02/20/2022 8:12 AM Gabriela [id number] [facility] Electronically signed by: Negrito Rao M.D. 02/20/2022 8:16 AM Lumbar Spine X-Ray 02/21/22 07:43 LUMBAR SPINE 3 VIEWS CLINICAL HISTORY: Left-sided low back pain. Stiffness. FINDINGS: 3 views of the lumbar spine compared to study dated 05/16/2019 and correlated with MRI of lumbar spine dated 02/20/2022. The skeletal structures are osteopenic. There is no radiographic evidence of acute fracture or malalignment. Vertebral body height is maintained. There is minimal retrolisthesis at L3-L4 and minimal anterolisthesis at L5-S1. Alignment is otherwise preserved. Anterior and lateral marginal osteophytes are seen throughout. There is postoperative change from discectomy at L3-L4 with laminectomy and posterior fusion with interposition bone graft at this level. The orthopedic hardware appears intact. The transverse processes appear intact. Facet arthropathy is noted in the lower lumbar region. There is mild to moderate multilevel degenerative disc space narrowing. The visualized bony pelvis appears intact. Sclerotic change is noted in the sacroiliac joints with partial fusion on the right. There is a nonobstructed abdominal bowel gas pattern. Advanced atherosclerotic calcification is noted in the abdominal aorta. There is a 1.4 cm nonobstructing left renal calculus. Suture material projects over the left pelvis. IMPRESSION: 1. No acute bony abnormality is seen involving the lumbar spine. 2. Osteopenia with postoperative and spondylotic change as above. This is similar to the 05/16/2019 examination. 3. Left-sided nephrolithiasis. Electronically signed by: Kenneth Ortiz M.D. 02/21/2022 10:37 AM Hospital Course (1) Intractable low back pain: 81 y/o M Hx HTN, HLD, DM II, lumbar fusion. Presents with progressive lower back vega x 203 days. He is unable to ambulate due to the pain. He denies LE numbness or weakness. Denies fevers or incontinence. Labs were unremarkable. Lumbar MRI demonstrated inflammation vs an infectious process. 1) Intractable lower back pain -improved dramatically with. Scheduled Tylenol dexamethasone opiates parenterally and orally lidocaine patch. Clinically, we do not suspect an infectious process at present. Patient was seen in consultation by Dr. Arguelles his assessment was (1) Chronic SI joint pain: Assessment sacroiliitis. Plan at this time I believe majority of symptom complex is involving the left SI joint. If his symptoms return or become incapacitating again have requested that he notify us at which point he may be a candidate for a left SI joint injection. He is stable for discharge today per orthopedics. Patient discharged home on Tylenol and dexamethasone for 5 additional days lidocaine patch and instructions to call for follow-up. 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: (5) Dyslipidemia: Total Time Total Time Spent Total Time Spent (In Minutes): It required greater than 30 minutes to prepare this patient for discharge Discharge Plan Discharge Items Patient Disposition: Home - Self-Care Reason For Visit: BCK PAIN Discharge Diagnosis: radicular back pain resolved Condition on Discharge: Good Activity: Per Instructions section Activity Comment: please no lifting or intentional exercise Non-emergency contact: Primary Care Provider and Surgeon Call non-emergency contact if: your symptoms worsen Follow-up/Referrals: Kenneth Pinzon MD [Primary Care Provider] - 02/27/22 10:00 am Diet: Regular Addtl Attending Provider Instructions: take Tylenol 1000m three times a day for 5 days, then stop and use as needed please follow up with Dr Arguelles Pending Studies at Discharge: No Stand-Alone Forms: My [facility] [employer] Games, Opioid Pain Management, Smoking Cessation Medications and DC Order Prescriptions: New lidocaine 5 % Adhesive Patch,Medicated 1 patch transdermal QAM Qty: 10 RF: 0 dexamethasone [Decadron] 4 mg tablet 4 mg PO DAILY Qty: 5 RF: 0 oxycodone 5 mg capsule 5 - 10 mg PO DAILY Qty: 20 RF: 0 Continued fluticasone propionate 50 mcg/actuation spray,suspension 2 spray intranasal DAILY PRN (Reason: ud) Qty: 15.8 RF: 3 Flovent HFA 110 mcg/actuation HFA aerosol inhaler 2 inh INH BID PRN (Reason: sob) Qty: 12 RF: 3 montelukast 10 mg tablet 10 mg PO QPM Qty: 90 RF: 3 albuterol sulfate [Ventolin HFA] 90 mcg/actuation HFA aerosol inhaler 2 inh inhalation Q4H PRN (Reason: shortness of breath or wheezing) Qty: 8.5 RF: 3 hydrochlorothiazide 25 mg tablet 25 mg PO QPM Qty: 90 RF: 3 azelastine 137 mcg (0.1 %) aerosol,spray 2 spray intranasal BID PRN (Reason: nasal congestion) Qty: 30 RF: 11 amlodipine 10 mg tablet 10 mg PO DAILY Qty: 90 RF: 3 losartan 100 mg tablet 100 mg PO QPM Qty: 90 RF: 3 cholecalciferol (vitamin D3) 25 mcg (1,000 unit) capsule 25 mcg PO QAM RF: 0 rosuvastatin 5 mg tablet 5 mg PO DAILY Qty: 90 RF: 3 Discharge Orders: Discharge Order (Routine); Ordered 02/21/22 Ordered By: Silver Robins/Other Patient Handouts: Preventing Deep Vein Thrombosis Admission Data Admit Date/Time: 02/20/22 06:39 Attending Provider: Silver Aguilera Admit Provider: Ronaldo Gómez Primary Care Provider: Kenneth Pinzon Other Providers: Ronaldo Gómez ; Moncho Arguelles Other Interventions: Discharge Summary Assessment (RN) Last Done: 02/21/22 15:55 Coding Level of Care Code D/C DAY MANAGEMENT >30 MINS Diagnoses Intractable low back pain M54.59 Benign essential hypertension I10 HLD (hyperlipidemia) E78.5 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
== END 2022-02-21 16:15 | disposition home or self-care (01) ==
LOC: ED 22:00 → 3W 22:00 → SUATTDRO 02-20 06:39 → 3W 02-20 07:39

== ENCOUNTER 2022-03-01 14:21 | Observation (INO) ==
[2022-03-01 15:33] LABS: Basophils # (auto) 0.04 K/uL (0-0.2); Basophils % (auto) 0.4 %; Eosinophils # (auto) 0.06 K/uL (0-0.50); Eosinophils % (auto) 0.5 %; Hematocrit (blood only) 45.6 % (40.1-51.0); Hemoglobin 15.9 g/dl (14.0-18.0); Immature Granulocytes # (auto) 0.07 K/uL (0.00-0.02); Immature Granulocytes % (auto) 0.6 %; Lymphocytes % (auto) 23.1 %; Mean Corpuscular Hemoglobin 29.4 pg (25.0-34.0); Mean Corpuscular Hgb Conc 34.9 g/dL (32.0-36.0); Mean Corpuscular Volume 84.4 fL (80.0-100.0); Mean Platelet Volume 9.6 fL (9.4-12.4); Neutrophils # (auto) 7.57 K/uL (1.4-6.5); Neutrophils % (auto) 67.4 %; Platelet Count 262 K/uL (130-400); RDW Coefficient of Variation 12.9 % (11.5-14.5); RDW Standard Deviation 39.8 fL (36.4-46.3); White Blood Count 11.24 K/ul (4.8-10.8)
[2022-03-01 15:34] LABS: Appearance Urine Clear (Clear); Bilirubin Urine Negative (Negative); Blood Urine Negative (Negative); Color Urine Yellow; Glucose Urine UA Negative (Negative); Ketones Urine 1+ (Negative); Leukocyte Esterase Urine Negative (Negative); Nitrite Urine Negative (Negative); Protein Urine Negative (Negative); Specific Gravity Urine 1.023 (1.000-1.030); Urobilinogen Urine Negative (Negative)
[2022-03-01] MEDS ORDERED: ONDANSETRON INJ 2 MG/ML 2 ML VIAL IV STA (16:03)
[2022-03-01] MEDS ORDERED: MoRPHine SULFATE 10 MG/ML CARP/VIAL IV STA (16:03)
[2022-03-01 16:06] LABS: Albumin Globulin Ratio 1.7 (0.9-2); Albumin Level 4.8 gm/dl (3.4-5.0); BUN Creatinine Ratio 19.5 (10-20); Bilirubin,Total 1.5 mg/dl (0.2-1.0); Calcium 11.2 mg/dl (8.5-10.1); Creatinine Clr Calc Pharmacy 68.9 ml/min; Est GFR (African American) 95.1 ml/min; Est GFR (Non-African American) 82.1 ml/min; Globulin 2.8 gm/dl (2.5-4.0); Potassium 3.9 mmol/L (3.5-5.1); Total Protein 7.6 gm/dl (6.0-8.3)
--- NOTE | 2022-03-01 16:10 | Emergency Department Note ---
Impression & Plan Back pain, Chronic SI joint pain ED Provider Note NAME: MEHDI DARLING AGE: 81 SEX: M : 1940 ARRIVES VIA: Walk-In INFORMANT: Patient ED PROVIDER(S): Jose Tamayo DO CHIEF COMPLAINT: backpain HPI: Patient is a 81-year-old male who presents to the ER for back pain. He notes this started February 19 when he fell onto his buttocks. Has been having pain since there. He was admitted and discharged and seen Dr. Arguelles on the . Denies any focal weakness or numbness. He is much more comfortable standing it worsens when he lays back or flattens out. Pain is a 10 out of 10 currently. No weakness or numbness in the groin. No numbness in the legs. No history of cancer. No fevers. No trauma other than the fall on the third. No dysuria urgency or frequency. He has been taking steroids and narcotics at home with no improvement. Last narcotic dose was this morning. ROS: See above HPI for pertinent positives & negatives. A total of 10 systems reviewed and were otherwise negative. PAST MEDICAL HISTORY:See Below PAST SURGICAL HISTORY:See Below FAMILY HISTORY:See Below SOCIAL HISTORY:See Below HOME MEDICATIONS:See Below ALLERGIES:See Below VITALS:See Below PHYSICAL EXAMINATION: GENERAL: Sitting up in bed, alert, well appearing, well nourished, no distress, non-toxic EYE EXAM: normal conjunctiva. OROPHARYNX: mucous membranes are moist NECK: supple, no nuchal rigidity, no adenopathy, non-tender LUNGS: Clear to auscultation. Normal chest wall mechanics HEART: no murmurs, S1 normal and S2 normal ABDOMEN: abdomen soft, non-tender, normo-active bowel sounds, no masses, no rebound or guarding. BACK: Back is symmetrical on inspection and there is no deformity, no midline tenderness, but old midline scar and lower lumbar with tenderness over the bilateral SI joints tracking into the bilateral gluteus. UPPER EXTREMITIES: upper extremities are grossly normal. LOWER EXTREMITIES: Flexion and extension of the hips, knees, ankles, and EHL 5/5 bilaterally. Gross sensation is intact. DPs are 2/4 bilateral. Patellar and Achilles reflexes are 2/4 bilateral NEURO EXAM: Normal sensorium, cranial nerves II-XII grossly intact, normal speech, no gross weakness of arms, no gross weakness of legs. MEDICAL DECISION MAKING: Patient is a 81-year-old male who presents ER for 10 out of 10 back pain. IV was established blood work was obtained. Labs show mild leukocytosis 11,000. No significant anemia. BMP with mild hyponatremia 134. Calcium slightly up 11.2. T bili up at 1.5. UA was unremarkable. COVID was negative. He was given IV morphine 6 mg as well as 1 mg of Dilaudid followed by another 0.5 mg of Dilaudid. His pain was finally controlled. X-rays of the lumbar spine showed questionable nondisplaced fracture in the distal sacrum. Question if this is the cause of his pain. Will defer to the hospitalist for additional imaging as well as Ortho. He was eventually made slightly comfortable discussed with Dr. Mayberry for further evaluation. Triage Nursing notes reviewed. Limited review of prior medical records performed Vital Signs: reviewed and remarkable for HTN Differential diagnosis: Differential diagnoses includes but is not limited to lumbar radiculopathy, kidney stone, muscle strain, facture, cauda equina, mass, and disc herniation. ER treatment provided: See below Diagnostics interpreted by me: ECG: none Cardiac Monitoring: An order was placed for continuous cardiac monitoring. The monitor shows a rate of 70 with sinus rhythm. Laboratory studies: As stated above and show below. 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 Botello - Rt eye H/O hernia repair History of lumbar fusion History of tonsillectomy History of tooth extraction Status post excision of acoustic neuroma Family History Father Dementia Other No family history of adverse response to anesthesia No significant family history Social History Smoking Status: Former smoker Tobacco Type: Cigarettes Second Hand Exposure: No; Hx Alcohol Use: Yes Alcohol type: beer and hard liquor Hx Substance Use: Yes Last Used Substance: Hours (ago) Substance Use Type Other:: oxycodone PRN Preferred Language: [place] Island[place] Communication Ability: Effective Special Effects Technician Required: No Beliefs That Will Affect Care: None marital status: Current Living Situation: Spouse current occupational status: retired Feels Safe at Home: Yes Seatbelt Use: sometimes Assistive Devices: Glasses Allergies Allergies Allergy/AdvReac Type Severity Reaction Status Date / Time No Known Allergies Allergy Verified 03/01/22 20:11 Home Meds Home Medications Medication Instructions Recorded Confirmed cholecalciferol (vitamin D3) 25 25 mcg PO QAM 04/09/20 03/01/22 mcg (1,000 unit) capsule Previous Rx's Medication Instructions Recorded fluticasone propionate 110 2 inh inhalation BID PRN sob #12 12/09/20 mcg/actuation HFA aerosol inhaler grams (Flovent HFA) fluticasone propionate 50 2 spray intranasal DAILY PRN ud 12/09/20 mcg/actuation nasal #15.8 mL spray,suspension montelukast 10 mg tablet 10 mg PO QPM #90 tabs 03/21/21 albuterol sulfate 90 mcg/actuation 2 inh inhalation Q4H PRN shortness 10/05/21 aerosol inhaler (Ventolin HFA) of breath or wheezing #8.5 grams hydrochlorothiazide 25 mg tablet 25 mg PO QPM #90 tabs 10/27/21 azelastine 137 mcg (0.1 %) nasal 2 spray intranasal BID PRN nasal 11/02/21 spray aerosol congestion #30 mL amlodipine 10 mg tablet 10 mg PO DAILY #90 tabs 11/28/21 losartan 100 mg tablet 100 mg PO QPM #90 tabs 12/21/21 rosuvastatin 5 mg tablet 5 mg PO DAILY #90 tabs 12/22/21 lidocaine 5 % topical patch 1 patch transdermal QAM #10 ea 02/21/22 fentanyl 25 mcg/hr transdermal 1 patch transdermal Q72H #5 ea 03/01/22 patch naloxone 4 mg/actuation nasal 1 spray intranasal Q3M #2 ea 03/01/22 spray (Narcan) oxycodone 5 mg capsule See Rx Instructions PO QID PRN 03/01/22 pain #90 caps Results & Data (ED) Vital Signs Vital Signs - 24 hr 03/01/22 14:27 03/01/22 16:23 03/01/22 16:24 Temperature 36.7 C Temperature Source Temporal Artery Scan Pulse Rate 86 Pulse Rate [Left Finger] 104 H Pulse Rhythm [Left Finger] Regular Pulse Strength [Left Finger] Normal Respiratory Rate 18 22 Respiratory Effort / Characteristics Non-Labored Spontaneous Respiratory Depth Normal Respiratory Pattern Regular Blood Pressure 174/78 H Blood Pressure [Left Arm] 146/96 H Blood Pressure Mean 110 Blood Pressure Mean [Left Arm] 112 Blood Pressure Position [Left Arm] Standing Pulse Oximetry 96 99 98 Oxygen Delivery Method Room Air Room Air Room Air Sepsis Recent Fever Within 48 Hours No Sepsis New/Unexplained Change in Mental Status No Sepsis Action Taken by Nursing No Action Required Laboratory Data Result diagrams: 03/01/22 15:20 03/01/22 15:20 Lab Results 03/01/22 03/01/22 03/01/22 Range/Units 15:20 15:20 15:20 WBC 11.24 H (4.8-10.8) K/ul RBC 5.40 (4.63-6.08) M/uL Hgb 15.9 (14.0-18.0) g/dl Hct 45.6 (40.1-51.0) % MCV 84.4 (80.0-100.0) fL MCH 29.4 (25.0-34.0) pg MCHC 34.9 (32.0-36.0) g/dL RDW Std Deviation 39.8 (36.4-46.3) fL RDW Coeff of Shailesh 12.9 (11.5-14.5) % Plt Count 262 (130-400) K/uL MPV 9.6 (9.4-12.4) fL Immature Gran % (Auto) 0.6 % Neut % (Auto) 67.4 % Lymph % (Auto) 23.1 % [place] % (Auto) 8.0 % Eos % (Auto) 0.5 % Baso % (Auto) 0.4 % Neut # (Auto) 7.57 H (1.4-6.5) K/uL Lymph # (Auto) 2.60 (1.2-3.4) K/uL [place] # (Auto) 0.90 H (0.24-0.82) K/uL Eos # (Auto) 0.06 (0-0.50) K/uL Baso # (Auto) 0.04 (0-0.2) K/uL Immature Gran # (Auto) 0.07 H (0.00-0.02) K/uL Sodium 134 L (136-145) mmol/L Potassium 3.9 (3.5-5.1) mmol/L Chloride 97 L (98-107) mmol/L Carbon Dioxide 26 (21-32) mmol/L Anion Gap 11 (3-11) BUN 17 (6-23) mg/dl Creatinine 0.87 (0.6-1.4) mg/dl Est Cr Clr Drug Dosing 68.9 ml/min Est GFR ( Amer) 95.1 ml/min Est GFR (Non-Af Amer) 82.1 ml/min BUN/Creatinine Ratio 19.5 (10-20) Glucose 134 H (70-99(Fasting)) mg/dl Calcium 11.2 H (8.5-10.1) mg/dl Total Bilirubin 1.5 H (0.2-1.0) mg/dl AST 18 (13-39) U/L ALT 34 (7-52) U/L Alkaline Phosphatase 80 (34-104) U/L Total Protein 7.6 (6.0-8.3) gm/dl Albumin 4.8 (3.4-5.0) gm/dl Globulin 2.8 (2.5-4.0) gm/dl Albumin/Globulin Ratio 1.7 (0.9-2) Urine Color Yellow Urine Appearance Clear (Clear) Urine pH 6.0 (4.5-7.5) Ur Specific [place] 1.023 (1.000-1.030) Urine Protein Negative (Negative) Urine Glucose (UA) Negative (Negative) Urine Ketones 1+ H (Negative) Urine Blood Negative (Negative) Urine Nitrite Negative (Negative) Urine Bilirubin Negative (Negative) Urine Urobilinogen Negative (Negative) Ur Leukocyte Esterase Negative (Negative) Administered Medications Discontinued Medications Hydromorphone HCl (Hydromorphone Inj 1 Mg/Ml Syringe) 1 mg IV NOW STA Stop: 03/01/22 18:02 Last Admin: 03/01/22 18:14 Dose: 1 mg Documented By: REBEKAH Hydromorphone HCl (Hydromorphone Inj 0.5 Mg/0.5 Ml Syr) 0.5 mg IV NOW STA Stop: 03/01/22 18:19 Last Admin: 03/01/22 18:24 Dose: 0.5 mg Documented By: REBEKAH Ketorolac Tromethamine (Ketorolac Tromethamine 15 Mg/Ml Vial) 15 mg IV NOW ONE Stop: 03/01/22 18:50 Last Admin: 03/01/22 19:05 Dose: 15 mg Documented By: LUISA Morphine Sulfate (Morphine Sulfate 10 Mg/Ml Carp/Vial) 6 mg IV NOW STA Stop: 03/01/22 16:04 Last Admin: 03/01/22 16:20 Dose: 6 mg Documented By: RENNY Ondansetron HCl (Ondansetron Inj 2 Mg/Ml 2 Ml Vial) 4 mg IV NOW STA Stop: 03/01/22 16:04 Last Admin: 03/01/22 16:20 Dose: 4 mg Documented By: RENNY Imaging Data Radiologist's Impression: Lumbar Spine X-Ray 03/01/22 16:03 XR lumbar spine 2-3V CLINICAL HISTORY: lower back pain COMPARISON STUDY: Lumbar spine 02/21/2022. FINDINGS: L3-L4 posterior decompression and fusion with pedicle screws and rods. The hardware appears intact. No abnormal periprosthetic lucency. The L3-L4 disc spacer remains in good position. There is 3 mm of retrolisthesis of L3 on L4, unchanged. Mild disc space narrowing at L2-L3 and L5-S1. There are moderate facet degenerative changes within the lower lumbar spine. Questionable offset at the distal sacrum near the sacrococcygeal junction which could be projectional. A nondisplaced fracture is not excluded. Remaining sacrum appears intact. Suture material within the left groin again noted. Left-sided nephrolithiasis. IMPRESSION: 1. No acute fracture or subluxation within the lumbar spine. 2. Postoperative and degenerative changes are again noted. Of the hardware appears intact. 3. Questionable offset at the distal sacrum near the sacrococcygeal junction which could be projectional. A nondisplaced fracture is not excluded. Recommend correlation for point tenderness to exclude an acute injury ACT 112: Negative or not required by law. Electronically signed by: Vikas Walden M.D. 03/01/2022 5:45 PM Discharge Plan Visit Data Chief Complaint: Back Injury/Pain Stated Complaint: BACK PAIN GETTING WORSE, [facility] SENT DESIRE HERE ED Provider: Jose Tamayo Discharge Problem: Back pain, Chronic SI joint pain Patient Disposition: Admitted As Inpatient Discharge Instructions Interventions: ED Discharge Assessment Last Done: 03/01/22 19:58
--- NOTE | 2022-03-01 17:47 | XRay Report ---
XR lumbar spine 2-3V CLINICAL HISTORY: lower back pain COMPARISON STUDY: Lumbar spine 02/21/2022. FINDINGS: L3-L4 posterior decompression and fusion with pedicle screws and rods. The hardware appears intact. No abnormal periprosthetic lucency. The L3-L4 disc spacer remains in good position. There is 3 mm of retrolisthesis of L3 on L4, unchanged. Mild disc space narrowing at L2-L3 and L5-S1. There a re moderate facet degenerative changes within the lower lumbar spine. Questionable offset at the dist al sacrum near the sacrococcygeal junction which could be projectional. A nondisplaced fracture is no t excluded. Remaining sacrum appears intact. Suture material within the left groin again noted. Left- sided nephrolithiasis. IMPRESSION: 1. No acute fracture or subluxation within the lumbar spine. 2. Postoperative and degenerative changes are again noted. Of the hardware appears intact. 3. Questionable offset at the distal sacrum near the sacrococcygeal junction which could be projectio nal. A nondisplaced fracture is not excluded. Recommend correlation for point tenderness to exclude a n acute injury ACT 112: Negative or not required by law. Electronically signed by: Vikas Walden M.D. 03/01/2022 5:45 PM
[2022-03-01] MEDS ORDERED: HYDROmorphone INJ 1 MG/ML SYRINGE IV STA (18:01)
[2022-03-01] MEDS ORDERED: HYDROmorphone INJ 0.5 MG/0.5 ML SYR IV STA (18:18)
[2022-03-01] MEDS ORDERED: KETOROLAC TROMETHAMINE 15 MG/ML VIAL IV ONE (18:49)
--- NOTE | 2022-03-01 19:15 | History & Physical Report ---
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 Patient was previously admitted on for intractable lower back pain. He was evaluated by Orthopaedics spine, noted with sacroiliitis. Following muscle relaxants, steroid IV, and transitioned to oral decadron 4mg for 5 days and Oxycodone. He was feeling better with orthopaedics evaluation and was discharged with plan to be evaluated by Dr. Banks for injection. [facility] where he was startled and twisted and jerked his back. This resulted in immediate lock up of his lower back and pain. He tried to sit down but then fell over with the pot he was on and needed multiple people to get him up. He has been unable to lay flat since then and sleeps in a recliner at home. He went to his PCP today with plans to start on fentanyl patch. Patient and then report that Dr. Banks's office called them and due to scheduling inabilities referred him to the [facility]. In the EMD the patient was treated with hydromorphone. He remains pacing in the room, and rigid movements. He points directly to his right SI joint. The pain is sharp and stabbing in nature that gets worse with him twisting or trying to lie flat. The pain radiated to his right buttocks mostly but when severe it will go down his right leg and terminate at just above the knee. There is no weakness of the leg or paraesthesia. Patient will be observed overnight with alteration in his medications. Will add Gabapentin on, Lidocaine patches, scheduled tylenol, and Oxy IR for break through. Will give dose of Toradol IV now. Will place consult for acute/chronic pain evaluation. COVID test on admission is: NEGATIVE Allergies Allergy/AdvReac Type Severity Reaction Status Date / Time No Known Allergies Allergy Verified 02/27/22 10:16 Home Medications Medication Instructions Recorded Confirmed Type cholecalciferol (vitamin D3) 25 25 mcg PO QAM 04/09/20 02/22/22 History mcg (1,000 unit) capsule fluticasone propionate 110 2 inh inhalation BID PRN sob #12 12/09/20 02/22/22 Rx mcg/actuation HFA aerosol inhaler grams (Flovent HFA) fluticasone propionate 50 2 spray intranasal DAILY PRN ud 12/09/20 02/22/22 Rx mcg/actuation nasal #15.8 mL spray,suspension montelukast 10 mg tablet 10 mg PO QPM #90 tabs 03/21/21 02/22/22 Rx albuterol sulfate 90 mcg/actuation 2 inh inhalation Q4H PRN shortness 10/05/21 02/22/22 Rx aerosol inhaler (Ventolin HFA) of breath or wheezing #8.5 grams hydrochlorothiazide 25 mg tablet 25 mg PO QPM #90 tabs 10/27/21 02/22/22 Rx azelastine 137 mcg (0.1 %) nasal 2 spray intranasal BID PRN nasal 11/02/21 02/22/22 Rx spray aerosol congestion #30 mL amlodipine 10 mg tablet 10 mg PO DAILY #90 tabs 11/28/21 02/22/22 Rx losartan 100 mg tablet 100 mg PO QPM #90 tabs 12/21/21 02/22/22 Rx rosuvastatin 5 mg tablet 5 mg PO DAILY #90 tabs 12/22/21 02/22/22 Rx lidocaine 5 % topical patch 1 patch transdermal QAM #10 ea 02/21/22 02/22/22 Rx fentanyl 25 mcg/hr transdermal 1 patch transdermal Q72H #5 ea 03/01/22 03/01/22 Rx patch naloxone 4 mg/actuation nasal 1 spray intranasal Q3M #2 ea 03/01/22 03/01/22 Rx spray (Narcan) oxycodone 5 mg capsule See Rx Instructions PO QID PRN 03/01/22 03/01/22 Rx pain #90 caps Past Med/Surg History Medical History Asthma rare use PRN inh Benign essential hypertension 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 Botello - Rt eye H/O hernia repair History of lumbar fusion History of tonsillectomy History of tooth extraction Status post excision of acoustic neuroma Family History Father Dementia Other No family history of adverse response to anesthesia No significant family history Social History Smoking Status: Former smoker Tobacco Type: Cigarettes Second Hand Exposure: No; Hx Alcohol Use: Yes Alcohol type: beer and hard liquor Hx Substance Use: No Preferred Language: Korean Communication Ability: Effective [employer] Lecturer Required: No Beliefs That Will Affect Care: None marital status: Current Living Situation: Spouse current occupational status: retired Feels Safe at Home: Yes Seatbelt Use: sometimes Assistive Devices: None Review of Systems Review of Systems: REVIEW OF SYSTEMS: Constitutional: No fever, sweats or chills Eyes: No diplopia, no worsening or blurred vision ENT: normal hearing, no trouble swallowing Respiratory: No cough, sputum, dyspnea at rest or on exertion Cardiovascular: No chest pain, tightness or palpitations Abdomen: No pain, nausea, vomiting, diarrhea or constipation Musculoskeletal: (+) right lower back joint pain spasm of back, calf pain, swelling Neurologic: No weakness, numbness/tingling, or balance problems Psychiatric: No anxiety or depression Skin: No rash or itch Physical Exam Physical Exam: PHYSICAL EXAM: General: awake, alert, no apparent distress Head: Normocephalic, atraumatic ENT: PERRL, EOMI, no pharyngeal exudate, mucous membranes moist Neuro: AAO x 3, speech clear and appropriate, strength intact bilaterally 5/5, sensation intact and equal all extremities and dermatomes, no pronator drift Chest: equal rise and fall of the chest, no accessory muscle use, no heaves or thrills, Clear to auscultation, on room air, Cardiac: Regular rate and rhythm, telemetry reviewed, skin warm dry, cap refill <3 seconds, peripheral pulses +2 no JVD, no murmur, no JVD, no edema GI: NABS x 4 quadrants, soft, nontender to palpation, no rebound, guarding or tenderness : Spontaneously voiding, no pain, no CVA tenderness, MSK: Right bruise in lumbar on the right- old appearing, right si joint pain with palpation with surrounding muscle tightness, no pain on spine or on the left si joint Psych: Normal mood and affect Skin: no rash or erythema Results & Data Results & Data ([facility]) Vital Signs (Past 12 Hours) Vital Signs Temp Pulse Pulse Resp BP BP Pulse Ox 03/01/22 16:24 104 H 22 146/96 H 98 03/01/22 16:23 99 03/01/22 14:27 36.7 C 86 18 174/78 H 96 O2 Del Method 03/01/22 16:24 Room Air 03/01/22 16:23 Room Air 03/01/22 14:27 Room Air Laboratory Results Abnormal lab results 03/01/22 03/01/22 03/01/22 Range/Units 15:20 15:20 15:20 WBC 11.24 H (4.8-10.8) K/ul Neut # (Auto) 7.57 H (1.4-6.5) K/uL [place] # (Auto) 0.90 H (0.24-0.82) K/uL Immature Gran # (Auto) 0.07 H (0.00-0.02) K/uL Sodium 134 L (136-145) mmol/L Chloride 97 L (98-107) mmol/L Glucose 134 H (70-99(Fasting)) mg/dl Calcium 11.2 H (8.5-10.1) mg/dl Total Bilirubin 1.5 H (0.2-1.0) mg/dl Urine Ketones 1+ H (Negative) Diagnostic Findings Lumbar Spine X-Ray 03/01/22 16:03 XR lumbar spine 2-3V CLINICAL HISTORY: lower back pain COMPARISON STUDY: Lumbar spine 02/21/2022. FINDINGS: L3-L4 posterior decompression and fusion with pedicle screws and rods. The hardware appears intact. No abnormal periprosthetic lucency. The L3-L4 disc spacer remains in good position. There is 3 mm of retrolisthesis of L3 on L4, unchanged. Mild disc space narrowing at L2-L3 and L5-S1. There are moderate facet degenerative changes within the lower lumbar spine. Questionable offset at the distal sacrum near the sacrococcygeal junction which could be projectional. A nondisplaced fracture is not excluded. Remaining sacrum appears intact. Suture material within the left groin again noted. Left-sided nephrolithiasis. IMPRESSION: 1. No acute fracture or subluxation within the lumbar spine. 2. Postoperative and degenerative changes are again noted. Of the hardware appears intact. 3. Questionable offset at the distal sacrum near the sacrococcygeal junction which could be projectional. A nondisplaced fracture is not excluded. Recommend correlation for point tenderness to exclude an acute injury ACT 112: Negative or not required by law. Electronically signed by: Vikas Walden M.D. 03/01/2022 5:45 PM MR lumbar spine wo con: Dictated: 02/20/2022 7:07 AM Transcribed: 02/20/2022 8:12 AM CLINICAL HISTORY: 81 years-old Male with severe pain, dif walking, pain down right leg. Acute severe low back pain with history of prior lumbar spine surgery. COMPARISON: Radiographs 05/16/2019, MRI lumbar spine 03/26/2017. TECHNIQUE: Multiplanar, multi sequence MRI of the lumbar spine was performed without intravenous contrast. FINDINGS: Atrophy with cortical thinning of the kidneys. The spleen appears enlarged. Distended urinary bladder. No abdominal aortic aneurysm or lymphadenopathy. No significant bone marrow or soft tissue edema. No acute fracture, subluxation, endplate erosion or suspicious bone lesion. A 2.6 cm L1 vertebral body hemangioma. Prior L3-L4 laminectomy with posterior interbody nate and screw fusion with discectomy. Mild edema is noted within the soft tissues at the laminectomy bed which is likely an expected postoperative finding. No postoperative fluid collections. T12-L1: Mild intervertebral disc space narrowing with anterior endplate predominant spondylitic spurring and mild facet arthrosis. No central canal or neural foraminal stenosis. Unchanged. L1-L2: Mild to moderate intervertebral disc space narrowing with associated anterior endplate predominant spondylitic spurring and mild facet arthrosis. No central canal or neural foraminal stenosis. Unchanged. L2-L3: Mild intervertebral disc space narrowing with associated anterior endplate predominant spondylitic spurring and mild to moderate facet arthrosis. No central canal or neural foraminal stenosis. Unchanged. L3-L4: Prior discectomy with laminectomy, anterior nate and screw fusion. 2 mm retrolisthesis with mild spondylitic spurring and moderate facet arthrosis. The central canal and left neural foramen are patent. There is at least mild right foraminal stenosis, suboptimally visualized secondary to the susceptibility artifact. L4-L5: Mild intervertebral disc space narrowing with spondylitic spurring and small circumferential annular disc bulge. Ligamentum flavum thickening with moderate facet arthrosis. Flattening of the ventral thecal sac without significant central canal stenosis. Mild left with mild to moderate right neural foraminal narrowing. These findings have mildly worsened from the prior study. L5-S1: Mild intervertebral disc space narrowing with spondylitic spurring and small circumferential annular disc bulge. Ligamentum flavum thickening with moderate to severe facet arthrosis. The central canal is patent. Mild to moderate bilateral neural foraminal narrowing has mildly progressed. IMPRESSION: 1. Motion degraded exam. No acute fracture or bone marrow edema. 2. Prior laminectomy with discectomy, posterior interbody nate and screw fusion at L3-L4. 3. Discogenic degeneration with spondylotic spurring and facet arthrosis resulting in multilevel neural foraminal narrowing as above. 4. No significant central canal stenosis. Medications Administered Home Medications cholecalciferol (vitamin D3) 25 mcg (1,000 unit) capsule 25 mcg PO QAM 04/09/20 [History Confirmed 02/22/22] fluticasone propionate 110 mcg/actuation HFA aerosol inhaler (Flovent HFA) 2 inh inhalation BID PRN sob #12 grams 12/09/20 [Rx Confirmed 02/22/22] fluticasone propionate 50 mcg/actuation nasal spray,suspension 2 spray intranasal DAILY PRN ud #15.8 mL 12/09/20 [Rx Confirmed 02/22/22] montelukast 10 mg tablet 10 mg PO QPM #90 tabs 03/21/21 [Rx Confirmed 02/22/22] albuterol sulfate 90 mcg/actuation aerosol inhaler (Ventolin HFA) 2 inh inhalation Q4H PRN shortness of breath or wheezing #8.5 grams 10/05/21 [Rx Confirmed 02/22/22] hydrochlorothiazide 25 mg tablet 25 mg PO QPM #90 tabs 10/27/21 [Rx Confirmed 0 02/22/22] azelastine 137 mcg (0.1 %) nasal spray aerosol 2 spray intranasal BID PRN nasal congestion #30 mL 11/02/21 [Rx Confirmed 02/22/22] amlodipine 10 mg tablet 10 mg PO DAILY #90 tabs 11/28/21 [Rx Confirmed 02/22/22] losartan 100 mg tablet 100 mg PO QPM #90 tabs 12/21/21 [Rx Confirmed 02/22/22] rosuvastatin 5 mg tablet 5 mg PO DAILY #90 tabs 12/22/21 [Rx Confirmed 02/22/22] lidocaine 5 % topical patch 1 patch transdermal QAM #10 ea 02/21/22 [Rx Confirmed 02/22/22] fentanyl 25 mcg/hr transdermal patch 1 patch transdermal Q72H #5 ea 03/01/22 [Rx Confirmed 03/01/22] naloxone 4 mg/actuation nasal spray (Narcan) 1 spray intranasal Q3M #2 ea 03/01/22 [Rx Confirmed 03/01/22] oxycodone 5 mg capsule See Rx Instructions PO QID PRN pain #90 caps 03/01/22 [Rx Confirmed 03/01/22] Discontinued Medications Hydromorphone HCl (Hydromorphone Inj 1 Mg/Ml Syringe) 1 mg IV NOW STA Stop: 03/01/22 18:02 Last Admin: 03/01/22 18:14 Dose: 1 mg Documented By: REBEKAH Hydromorphone HCl (Hydromorphone Inj 0.5 Mg/0.5 Ml Syr) 0.5 mg IV NOW STA Stop: 03/01/22 18:19 Last Admin: 03/01/22 18:24 Dose: 0.5 mg Documented By: REBEKAH Morphine Sulfate (Morphine Sulfate 10 Mg/Ml Carp/Vial) 6 mg IV NOW STA Stop: 03/01/22 16:04 Last Admin: 03/01/22 16:20 Dose: 6 mg Documented By: RENNY Ondansetron HCl (Ondansetron Inj 2 Mg/Ml 2 Ml Vial) 4 mg IV NOW STA Stop: 03/01/22 16:04 Last Admin: 03/01/22 16:20 Dose: 4 mg Documented By: TW ECG Additional Comments: none Code Status & VTE Plan Code Status CODE: FULL VTE: SCDS, hold on chemoprhylaxis until evaluation for possible injection completed VTE Prophylaxis Plan VTE Prophylaxis will be ordered: Yes Supervising Physician Co-Signing Physician Notes Patient seen and examined with [employer] PRO[employer] COORDINATION SPECIALIST, agree with his note above. Patient complaining of significant left lower back pain, over superior left sacroiliac joint. Some radiation to the left buttock. No weakness. Patient was to see pain management but could not be seen in a timely fashion so he came to the emergency room. Patient seems to be more comfortable sitting up but has more difficulty lying down. Patient has been given multiple doses of narcotics. Changed to gabapentin and steroids. Follow-up with pain management in morning, consider sacroiliac steroid injection. 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
[2022-03-01] MEDS ORDERED: oxyCODONE HCL IR 5 MG TAB (IMMEDIATE RELEASE) PO PRN (20:39)
[2022-03-01] MEDS ORDERED: FLUTICASONE PROPIONATE NA SPR 16 GM BTL NAE PRN (20:39)
[2022-03-01] MEDS ORDERED: AZELASTINE HCL 0.1% NASAL 200 SPRAYS/27,400 MCG BTL NAE PRN (20:39)
[2022-03-01] MEDS ORDERED: ALBUTEROL HFA 8 GM INHALER INH PRN (20:39)
[2022-03-01] MEDS ORDERED: LIDOCAINE 5% 1 PATCH TD SCH (21:00)
[2022-03-01] MEDS ORDERED: LOSARTAN POTASSIUM 50 MG TAB PO SCH (21:00)
[2022-03-01] MEDS ORDERED: hydroCHLOROthiazide 25 MG TAB PO SCH (21:00)
[2022-03-01] MEDS ORDERED: MONTELUKAST SODIUM 10 MG TABLET PO SCH (21:00)
[2022-03-01] MEDS: GABAPENTIN 300 MG CAP PO SCH (21:41)
[2022-03-02] MEDS: ACETAMINOPHEN 325 MG TAB PO SCH ×3 (00:36→13:38)
[2022-03-02 06:59] LABS: Hematocrit (blood only) 40.6 % (40.1-51.0); Hemoglobin 13.5 g/dl (14.0-18.0); Mean Corpuscular Hemoglobin 29.5 pg (25.0-34.0); Mean Corpuscular Hgb Conc 33.3 g/dL (32.0-36.0); Mean Corpuscular Volume 88.6 fL (80.0-100.0); Mean Platelet Volume 9.6 fL (9.4-12.4); Platelet Count 219 K/uL (130-400); RDW Coefficient of Variation 13.1 % (11.5-14.5); RDW Standard Deviation 42.2 fL (36.4-46.3); Red Blood Count 4.58 M/uL (4.63-6.08); White Blood Count 8.83 K/ul (4.8-10.8)
[2022-03-02 07:34] LABS: BUN Creatinine Ratio 27.4 (10-20); Calcium 10.2 mg/dl (8.5-10.1); Creatinine Clr Calc Pharmacy 62.4 ml/min; Est GFR (African American) 87.9 ml/min; Est GFR (Non-African American) 75.8 ml/min; Magnesium 1.8 mg/dl (1.7-2.4); Potassium 3.8 mmol/L (3.5-5.1)
[2022-03-02 07:38] LABS: Basophils # (auto) 0.01 K/uL (0-0.2); Basophils % (auto) 0.1 %; Eosinophils # (auto) 0.16 K/uL (0-0.50); Eosinophils % (auto) 1.8 %; Immature Granulocytes # (auto) 0.06 K/uL (0.00-0.02); Immature Granulocytes % (auto) 0.7 %; Lymphocytes % (auto) 30.6 %; Monocytes # (auto) 0.86 K/uL (0.24-0.82); Monocytes % (auto) 9.7 %; Neutrophils # (auto) 5.04 K/uL (1.4-6.5); Neutrophils % (auto) 57.1 %
[2022-03-02] MEDS ORDERED: KETOROLAC 30 MG/ML VIAL ONE (07:53)
[2022-03-02] MEDS ORDERED: TRIAMCINOLONE ACET 40 MG/ML VIAL ONE (07:53)
[2022-03-02] MEDS: GABAPENTIN 300 MG CAP PO SCH (08:36)
--- NOTE | 2022-03-02 08:39 | Hospitalist Progress Note ---
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: Plan: not on therapy (4) Dyslipidemia: Plan: Continue rosuvastatin 5mg PO daily (5) Asthma, mild intermittent: Plan: Continue albuterol and fluticasone continue montelukast (6) Benign essential hypertension: Plan: Continue HCTZ, Losartan 100mg PO Daily, amlodipine 10 mg po daily Admission and Anticipated Discharge Date Admission Date: March 01, 2022 Results & Data Results & Data ([facility]) Vital Signs (Past 12 Hours) Vital Signs Temp Pulse Resp BP Pulse Ox O2 Del Method 03/02/22 07:08 36.6 C 51 L 16 139/74 100 Room Air 03/01/22 21:23 156/66 H Laboratory Results 03/02/22 03/02/22 03/01/22 Range/Units 06:33 06:33 Unknown WBC 8.83 (4.8-10.8) K/ul RBC 4.58 L (4.63-6.08) M/uL Hgb 13.5 L (14.0-18.0) g/dl Hct 40.6 (40.1-51.0) % MCV 88.6 (80.0-100.0) fL MCH 29.5 (25.0-34.0) pg MCHC 33.3 (32.0-36.0) g/dL RDW Std Deviation 42.2 (36.4-46.3) fL RDW Coeff of Shailesh 13.1 (11.5-14.5) % Plt Count 219 (130-400) K/uL MPV 9.6 (9.4-12.4) fL Immature Gran % (Auto) 0.7 % Neut % (Auto) 57.1 % Lymph % (Auto) 30.6 % [place] % (Auto) 9.7 % Eos % (Auto) 1.8 % Baso % (Auto) 0.1 % Neut # (Auto) 5.04 (1.4-6.5) K/uL Lymph # (Auto) 2.70 (1.2-3.4) K/uL [place] # (Auto) 0.86 H (0.24-0.82) K/uL Eos # (Auto) 0.16 (0-0.50) K/uL Baso # (Auto) 0.01 (0-0.2) K/uL Immature Gran # (Auto) 0.06 H (0.00-0.02) K/uL Sodium 134 L (136-145) mmol/L Potassium 3.8 (3.5-5.1) mmol/L Chloride 99 (98-107) mmol/L Carbon Dioxide 30 (21-32) mmol/L Anion Gap 5 (3-11) BUN 26 H (6-23) mg/dl Creatinine 0.95 (0.6-1.4) mg/dl Est Cr Clr Drug Dosing 62.4 ml/min Est GFR ( Amer) 87.9 ml/min Est GFR (Non-Af Amer) 75.8 ml/min BUN/Creatinine Ratio 27.4 H (10-20) Glucose 125 H (70-99(Fasting)) mg/dl Calcium 10.2 H (8.5-10.1) mg/dl Magnesium 1.8 (1.7-2.4) mg/dl Total Bilirubin (0.2-1.0) mg/dl AST (13-39) U/L ALT (7-52) U/L Alkaline Phosphatase (34-104) U/L Total Protein (6.0-8.3) gm/dl Albumin (3.4-5.0) gm/dl Globulin (2.5-4.0) gm/dl Albumin/Globulin Ratio (0.9-2) Urine Color Urine Appearance (Clear) Urine pH (4.5-7.5) Ur Specific [place] (1.000-1.030) Urine Protein (Negative) Urine Glucose (UA) (Negative) Urine Ketones (Negative) Urine Blood (Negative) Urine Nitrite (Negative) Urine Bilirubin (Negative) Urine Urobilinogen (Negative) Ur Leukocyte Esterase (Negative) SARS-CoV-2, RNA, NAAT NEGATIVE (NEGATIVE) 03/01/22 03/01/22 03/01/22 Range/Units 15:20 15:20 15:20 WBC 11.24 H (4.8-10.8) K/ul RBC 5.40 (4.63-6.08) M/uL Hgb 15.9 (14.0-18.0) g/dl Hct 45.6 (40.1-51.0) % MCV 84.4 (80.0-100.0) fL MCH 29.4 (25.0-34.0) pg MCHC 34.9 (32.0-36.0) g/dL RDW Std Deviation 39.8 (36.4-46.3) fL RDW Coeff of Shailesh 12.9 (11.5-14.5) % Plt Count 262 (130-400) K/uL MPV 9.6 (9.4-12.4) fL Immature Gran % (Auto) 0.6 % Neut % (Auto) 67.4 % Lymph % (Auto) 23.1 % [place] % (Auto) 8.0 % Eos % (Auto) 0.5 % Baso % (Auto) 0.4 % Neut # (Auto) 7.57 H (1.4-6.5) K/uL Lymph # (Auto) 2.60 (1.2-3.4) K/uL [place] # (Auto) 0.90 H (0.24-0.82) K/uL Eos # (Auto) 0.06 (0-0.50) K/uL Baso # (Auto) 0.04 (0-0.2) K/uL Immature Gran # (Auto) 0.07 H (0.00-0.02) K/uL Sodium 134 L (136-145) mmol/L Potassium 3.9 (3.5-5.1) mmol/L Chloride 97 L (98-107) mmol/L Carbon Dioxide 26 (21-32) mmol/L Anion Gap 11 (3-11) BUN 17 (6-23) mg/dl Creatinine 0.87 (0.6-1.4) mg/dl Est Cr Clr Drug Dosing 68.9 ml/min Est GFR ( Amer) 95.1 ml/min Est GFR (Non-Af Amer) 82.1 ml/min BUN/Creatinine Ratio 19.5 (10-20) Glucose 134 H (70-99(Fasting)) mg/dl Calcium 11.2 H (8.5-10.1) mg/dl Magnesium (1.7-2.4) mg/dl Total Bilirubin 1.5 H (0.2-1.0) mg/dl AST 18 (13-39) U/L ALT 34 (7-52) U/L Alkaline Phosphatase 80 (34-104) U/L Total Protein 7.6 (6.0-8.3) gm/dl Albumin 4.8 (3.4-5.0) gm/dl Globulin 2.8 (2.5-4.0) gm/dl Albumin/Globulin Ratio 1.7 (0.9-2) Urine Color Yellow Urine Appearance Clear (Clear) Urine pH 6.0 (4.5-7.5) Ur Specific [place] 1.023 (1.000-1.030) Urine Protein Negative (Negative) Urine Glucose (UA) Negative (Negative) Urine Ketones 1+ H (Negative) Urine Blood Negative (Negative) Urine Nitrite Negative (Negative) Urine Bilirubin Negative (Negative) Urine Urobilinogen Negative (Negative) Ur Leukocyte Esterase Negative (Negative) SARS-CoV-2, RNA, NAAT (NEGATIVE) Diagnostic Findings Lumbar Spine X-Ray 03/01/22 16:03 XR lumbar spine 2-3V CLINICAL HISTORY: lower back pain COMPARISON STUDY: Lumbar spine 02/21/2022. FINDINGS: L3-L4 posterior decompression and fusion with pedicle screws and rods. The hardware appears intact. No abnormal periprosthetic lucency. The L3-L4 disc spacer remains in good position. There is 3 mm of retrolisthesis of L3 on L4, unchanged. Mild disc space narrowing at L2-L3 and L5-S1. There are moderate facet degenerative changes within the lower lumbar spine. Questionable offset at the distal sacrum near the sacrococcygeal junction which could be projectional. A nondisplaced fracture is not excluded. Remaining sacrum appears intact. Suture material within the left groin again noted. Left-sided nephrolithiasis. IMPRESSION: 1. No acute fracture or subluxation within the lumbar spine. 2. Postoperative and degenerative changes are again noted. Of the hardware appears intact. 3. Questionable offset at the distal sacrum near the sacrococcygeal junction which could be projectional. A nondisplaced fracture is not excluded. Recommend correlation for point tenderness to exclude an acute injury ACT 112: Negative or not required by law. Electronically signed by: Vikas Walden M.D. 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
[2022-03-02] MEDS ORDERED: SODIUM CHLORIDE 0.9% 1000ML 1,000 ML IV SCH (08:45)
[2022-03-02] MEDS ORDERED: FLUTICASONE FUROATE 200MCG 14 PUFFS/INHALER INH PRN (09:00)
[2022-03-02] MEDS ORDERED: amLODIPine BESYLATE 5 MG TAB PO SCH (09:00)
[2022-03-02] MEDS ORDERED: ROSUVASTATIN CALCIUM 5 MG TAB PO SCH (09:00)
[2022-03-02] MEDS ORDERED: CHOLECALCIFEROL 1,000 UNITS 25 MCG TAB PO SCH (09:00)
--- NOTE | 2022-03-02 09:02 | Pain Management Consultation ---
Date of Consultation March 02, 2022 Assessment & Plan (1) Back pain: (2) Myofascial pain: (3) Chronic SI joint pain: Plan 1. Patient appears to have localized pain in the left SI joint region and gluteal area with myofascial component. Treatment options were discussed. Will plan for SI joint injection in the outpatient setting next week. We will also recommend a trial of trigger point injections at today's visit and he was agreeable. Refer to procedure note below. 2. There was discussion regarding initiation of fentanyl patch by Dr. Pinzon, would not recommend initiation of fentanyl patch at this time 3. Will initiate baclofen 10 mg twice daily 4. Continue with Lidoderm patch, Tylenol and gabapentin without change. Patient may utilize Oxy IR for breakthrough pain as needed. 5. Patient will be seen for SI joint injection in pain clinic next week. Patient may be discharged at the discretion of hospitalist team. TRIGGER POINT INJECTION Diagnosis: Myofascial pain with spasm Side/Level injected: Left mid middle and superior gluteal x3 Surgeon: Jose MAY Prior to starting, the Patients diagnosis and the procedure were reviewed with the patient in detail. Possible risks and complications including infection, bleeding, damage to surrounding structures and increased pain were discussed. Alternative therapies were also reviewed. Patients questions were answered and they agreed to proceed. Informed consent was obtained. Allergies and medic ation list was reviewed. The patient was brought to the procedure room and placed in prone position. Immediately prior to starting the procedure, a ``time out was conducted with the staff and the patient where the patient was identified, proposed procedure was verified, consent was reviewed and the proper site for the planned procedure was identified. Patient was not given any intravenous sedation and constant verbal contact was maintained throughout the procedure. On examination, no signs of skin breakdown or infection were noted at the injection site. The site was cleansed with ChloraPrep. Palpation over the site produced patients typical pain. Using an 1.5 inch 22-gauge needle, the above muscles were injected in similar fashion after negative aspiration for blood with 2-3 mL of a combination of 6 mL of 0.5% ropivacaine containing 40 mg of Kenalog and 30 mg of ketorolac without complication. Needle was withdrawn and hemostasis noted. Band-Aid was applied where needed. Patient tolerated the procedure uneventfully without complications. Patient was discharged home with standard discharge instructions after 15-20 minutes. History of Present Illness Reason for Consultation: Intractable left-sided lumbosacral pain Requesting Physician: TERRANCE Saunders Attending Physician: Silver Aguilera MD History of Present Illness Mr. Darling is a 81-year-old white male who was admitted due to intractable left- sided lumbosacral region pain. The patient was also admitted approximately 2 weeks ago with similar complaints. Patient has been evaluated multiple times by his PCP over the past 1 week due to the pain complaint in the left lumbosacral region. He denied a known injury. This pain has been ongoing for greater than 1 year and intermittent, but recently more persistent. He did have a fall in early February onto his buttock but he denies any change in characteristic or location of his pain since that time. He reports the pain is episodic and extremely sharp and stabbing in characteristic without known precipitating event. The pain is currently a 0/10 in the sitting position. His pain can escalate to a 10/10. The pain remains localized to the left lumbosacral and gluteal region without any radiation. He reports movement aggravates symptoms. Evaluation with Dr. Arguelles upon his last admission who deferred any further s urgical intervention. Prior history of an L3-4 laminectomy and fusion. There was discussion regarding planning for left SI joint injection in the outpatient setting, but it has not been scheduled per the patient's report. He denies weaknesses in the lower extremity, foot or episodes of falling. He denies bowel or bladder incontinence. He reports minimal benefit from any opiate therapy for this pain. Patient reports some extensive travel in January with a lot of sitting which he believes exacerbated his symptoms. Patient has no further Concert complaints. Plan of care discussed with Dr. Nicky Mcconnell. Pain Assessment Full Body Front + Back: 1. Axial left-sided lumbosacral region pain-no radiation Pain scale - at its best (0-10): 0 Pain scale - at its worst (0-10): 10 Allergies Allergy/AdvReac Type Severity Reaction Status Date / Time No Known Allergies Allergy Verified 03/01/22 20:11 Home Medications Medication Instructions Recorded Confirmed Type cholecalciferol (vitamin D3) 25 25 mcg PO QAM 04/09/20 03/01/22 History mcg (1,000 unit) capsule fluticasone propionate 110 2 inh inhalation BID PRN sob #12 12/09/20 03/01/22 Rx mcg/actuation HFA aerosol inhaler grams (Flovent HFA) fluticasone propionate 50 2 spray intranasal DAILY PRN ud 12/09/20 03/01/22 Rx mcg/actuation nasal #15.8 mL spray,suspension montelukast 10 mg tablet 10 mg PO QPM #90 tabs 03/21/21 03/01/22 Rx albuterol sulfate 90 mcg/actuation 2 inh inhalation Q4H PRN shortness 10/05/21 03/01/22 Rx aerosol inhaler (Ventolin HFA) of breath or wheezing #8.5 grams hydrochlorothiazide 25 mg tablet 25 mg PO QPM #90 tabs 10/27/21 03/01/22 Rx azelastine 137 mcg (0.1 %) nasal 2 spray intranasal BID PRN nasal 11/02/21 03/01/22 Rx spray aerosol congestion #30 mL amlodipine 10 mg tablet 10 mg PO DAILY #90 tabs 11/28/21 03/01/22 Rx losartan 100 mg tablet 100 mg PO QPM #90 tabs 12/21/21 03/01/22 Rx rosuvastatin 5 mg tablet 5 mg PO DAILY #90 tabs 12/22/21 03/01/22 Rx lidocaine 5 % topical patch 1 patch transdermal QAM #10 ea 02/21/22 03/01/22 Rx fentanyl 25 mcg/hr transdermal 1 patch transdermal Q72H #5 ea 03/01/22 03/01/22 Rx patch naloxone 4 mg/actuation nasal 1 spray intranasal Q3M #2 ea 03/01/22 03/01/22 Rx spray (Narcan) oxycodone 5 mg capsule See Rx Instructions PO QID PRN 03/01/22 03/01/22 Rx pain #90 caps Pain History Pain Intensity Pain scale - at its best (0-10): 0 Pain scale - at its worst (0-10): 10 Patient History Medical History (Updated 03/02/22 @ 08:59 by Jose Luciano PA-C) Asthma rare use PRN inh Benign essential hypertension 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 Botello - Rt eye H/O hernia repair History of lumbar fusion History of tonsillectomy History of tooth extraction Status post excision of acoustic neuroma Family History Father Dementia Other No family history of adverse response to anesthesia No significant family history Social History Smoking Status: Former smoker Tobacco Type: Cigarettes Second Hand Exposure: No; Hx Alcohol Use: Yes Alcohol type: beer and hard liquor Hx Substance Use: Yes Last Used Substance: Hours (ago) Substance Use Type Other:: oxycodone PRN Preferred Language: Qatari Communication Ability: Effective [employer] Assistant Required: No Beliefs That Will Affect Care: None marital status: Current Living Situation: Spouse current occupational status: retired Feels Safe at Home: Yes Seatbelt Use: sometimes Assistive Devices: Glasses Physical Exam Physical Exam: General: Patient sitting quietly in exam room in no acute distress. Speech and thought process appropriate. Mood and affect appropriate. Cognition intact. Head: Normocephalic and atraumatic. ENT: No evidence of nasal or oral mucosal lesions. Mucous membranes are moist. Eyes: Pupils equal round reactive to light. Abdomen: Soft and nondistended. No organomegaly. Bowel sounds active. Back/spine: Complete loss of lumbar lordosis. Well-healed midline surgical incision over the mid lumbar spine. Nontender over the midline to palpation or percussion. There is no midline sacral or distal sacral region tenderness to direct palpation. Patient is nontender to provocative testing of the facet joints bilaterally. Patient is nontender over the right SI joint. Patient is tender over the left SI joint to provocative testing. Patient is tender over the mid gluteal musculature with spasm and a few small myoneural trigger points at sites of maximal tenderness. Facet loadbearing test negative bilaterally. Lower extremities: SLR negative bilaterally. Strength testing 4+/5 throughout without focal deficit. Sensation intact without deficit. Resisted hip flexion increased gluteal region pain. NANI maneuver was positive on the left and n egative on the right. Hip is nontender with internal/external rotation. Neurologic: Cranial nerves grossly intact. Ambulatory function slowed and slightly guarded. Patient was able stand from sitting position and transfer without assistance. Results (Pain Clinic) Diagnostic Review Radiology Findings: [facility], [place] [phone] XRay Report Patient:MEHDI DARLING Admit Date:03/01/22 MR#:[id number] Address1:[address] [place] [address] Acct ID:[id number] Address2: Date:1940 [facility] Zip:[place] [address] Age:81 Location:ED Sex:M Room/Bed: Att Phy: Diagnosis:BACK PAIN GETTING WORSE, [facility] SENT DESIRE HERE [place] Phy:Kenneth Pinzon MD Service Date:03/01/22 Fam Phy: Interpreting Phy:Vikas Walden MDAdmit Phy: Ordering Phy:Jose Tamayo, DO cc: ~ XR lumbar spine 2-3V CLINICAL HISTORY: lower back pain COMPARISON STUDY: Lumbar spine 02/21/2022. FINDINGS: L3-L4 posterior decompression and fusion with pedicle screws and rods. The hardware appears intact. No abnormal periprosthetic lucency. The L3-L4 disc spacer remains in good position. There is 3 mm of retrolisthesis of L3 on L4, unchanged. Mild disc space narrowing at L2-L3 and L5-S1. There are moderate facet degenerative changes within the lower lumbar spine. Questionable offset at the distal sacrum near the sacrococcygeal junction which could be projectional. A nondisplaced fracture is not excluded. Remaining sacrum appears intact. Suture material within the left groin again noted. Left-sided nephrolithiasis. IMPRESSION: 1. No acute fracture or subluxation within the lumbar spine. 2. Postoperative and degenerative changes are again noted. Of the hardware appears intact. 3. Questionable offset at the distal sacrum near the sacrococcygeal junction which could be projectional. A nondisplaced fracture is not excluded. Recommend correlation for point tenderness to exclude an acute injury ACT 112: Negative or not required by law. Electronically signed by: Vikas Walden M.D. 03/01/2022 5:45 PM Dictated:03/01/22 1740 Transcribed: 03/01/221739 Previous Records Review Previous Records: personally reviewed by me
[2022-03-02] MEDS ORDERED: BACLOFEN 10 MG TAB PO SCH (10:30)
--- NOTE | 2022-03-02 11:20 | Discharge Summary ---
Date of Service March 02, 2022 Admission HPI Per Admitting Provider 81 YOM with medical history of: HLD, HTN, DM II, Chronic low back pain with lumbar fusion with hardware 2016, chronic SI joint pain. Patient was previously admitted on [id number] for intractable lower back pain. He was evaluated by Orthopaedics spine, noted with sacroiliitis. Following muscle relaxants, steroid IV, and transitioned to oral decadron 4mg for 5 days and Oxycodone. He was feeling better with orthopaedics evaluation and was discharged with plan to be evaluated by Dr. Banks for injection. [facility] where he was startled and twisted and jerked his back. This resulted in immediate lock up of his lower back and pain. He tried to sit down but then fell over with the pot he was on and needed multiple people to get him up. He has been unable to lay flat since then and sleeps in a recliner at home. He went to his PCP today with plans to start on fentanyl patch. Patient and then report that Dr. Banks's office called them and due to scheduling inabi lities referred him to the [facility]. In the EMD the patient was treated with hydromorphone. He remains pacing in the room, and rigid movements. He points directly to his right SI joint. The pain is sharp and stabbing in nature that gets worse with him twisting or trying to lie flat. The pain radiated to his right buttocks mostly but when severe it will go down his right leg and terminate at just above the knee. There is no weakness of the leg or paraesthesia. Patient will be observed overnight with alteration in his medications. Will add Gabapentin on, Lidocaine patches, scheduled tylenol, and Oxy IR for break through. Will give dose of Toradol IV now. Will place consult for acute/chronic pain evaluation. COVID test on admission is: NEGATIVE Admission Exam Per Admitting Provider PHYSICAL EXAM: General: awake, alert, no apparent distress Head: Normocephalic, atraumatic ENT: PERRL, EOMI, no pharyngeal exudate, mucous membranes moist Neuro: AAO x 3, speech clear and appropriate, strength intact bilaterally 5/5, sensation intact and equal all extremities and dermatomes, no pronator drift Chest: equal rise and fall of the chest, no accessory muscle use, no heaves or thrills, Clear to auscultation, on room air, Cardiac: Regular rate and rhythm, telemetry reviewed, skin warm dry, cap refill <3 seconds, peripheral pulses +2 no JVD, no murmur, no JVD, no edema GI: NABS x 4 quadrants, soft, nontender to palpation, no rebound, guarding or tenderness : Spontaneously voiding, no pain, no CVA tenderness, MSK: Right bruise in lumbar on the right- old appearing, right si joint pain with palpation with surrounding muscle tightness, no pain on spine or on the left si joint Psych: Normal mood and affect Skin: no rash or erythema Principal Diagnosis Sacroiliitis, SI Joint Pain Discharge Exam General: WD/WD male sitting up in chair looking out the window, NAD HEENT: head normocephalic, atraumatic, pupils equal and reactive, trachea midline without deviation Resp: CTAB, no w/c/r, on room air CV: RRR, no m/r/g, no calf edema : no guaman, no CVA tenderness MSK/Neuro: loss of lumbar lordosis, prior midline scar well healed, non-tender over midline of spinal process, non-tender over R SI joint, minimal gluteal tenderness on the left. strength 4+/5 bilaterally, pulses palpable Psych: AOx3, pleasant and cooperative Skin: warm, dry Discharge Data Allergies Allergy/AdvReac Type Severity Reaction Status Date / Time No Known Allergies Allergy Verified 03/01/22 20:11 Consultations 03/01/22 18:03 ED Decision to Admit Stat 03/01/22 20:39 Consult Pain Management Routine Ordered Studies Lumbar Spine X-Ray 03/01/22 16:03 XR lumbar spine 2-3V CLINICAL HISTORY: lower back pain COMPARISON STUDY: Lumbar spine 02/21/2022. FINDINGS: L3-L4 posterior decompression and fusion with pedicle screws and rods. The hardware appears intact. No abnormal periprosthetic lucency. The L3-L4 disc spacer remains in good position. There is 3 mm of retrolisthesis of L3 on L4, unchanged. Mild disc space narrowing at L2-L3 and L5-S1. There are moderate facet degenerative changes within the lower lumbar spine. Questionable offset at the distal sacrum near the sacrococcygeal junction which could be projectional. A nondisplaced fracture is not excluded. Remaining sacrum appears intact. Suture material within the left groin again noted. Left-sided nephrolithiasis. IMPRESSION: 1. No acute fracture or subluxation within the lumbar spine. 2. Postoperative and degenerative changes are again noted. Of the hardware appears intact. 3. Questionable offset at the distal sacrum near the sacrococcygeal junction which could be projectional. A nondisplaced fracture is not excluded. Recommend correlation for point tenderness to exclude an acute injury ACT 112: Negative or not required by law. Electronically signed by: Vikas Walden M.D. 03/01/2022 5:45 PM Hospital Course (1) Chronic sacroiliac pain: Acute on Chronic SI joint pain (was tx w/ steroids x 2 days and discharged earlier this month) Imaging without neura Pain control -- tylenol, gabapentin, lidocaine patch. oxycodone prn Pain management consulted * s/p SI injection with pain management AM 03/02 * Continue baclofen 10mg BID at discharge * F/u next week outpatient Of note, Hypercalcemia on labs 11.2 on admit. * On HCTZ and amlodipine . bilateral kidney stones on imaging but no evidence for obstruction/issues currently * Given symptoms of hypercalcemia, and checked Vit D (85.7, on 25mcg D3 daily) --> to STOP Vit D supplementation and HOLD further HCTZ and monitor BPs at home (states very well controlled) * Consider titrating losartan in place of HCTZ if needed in outpatient setting if needed (2) Hypercalcemia: 11.2 on admit, repeat 10.2 on amlodipine, HCTZ outpatient, also on Vit D 25mcg daily Given 1 L IVF prior to discharge, slightly dry mm, improved Vit D 85.7 Educated to HOLD FURTHER HCTZ/monitor BPs at home STOPPED VIt D supplementation F/u PCP -- could increase losartan if needed if BPs elevated in outpatient however patient stated well controlled Stones on imaging but no obstruction/no urinary symptoms. 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: A1c 6.6 last admit, not on therapy counseling f/u PCP for continued monitoring (5) Dyslipidemia: Continued rosuvastatin 5mg PO daily (6) Asthma, mild intermittent: Continue albuterol and fluticasone continue montelukast 100% on RA, lung clear (7) Benign essential hypertension: BP stable/controlled Continue amlodipine, losartan at d/c HCTZ discontinued as outlined, f/u PCP Plan discharged home after improvement with SI injection inpatient f/u pain management 1 week f/u PCP for BP monitoring/hypercalcemia Total Time Total Time Spent Total Time Spent (In Minutes): 50 Discharge Plan Discharge Items Patient Disposition: Home - Self-Care Reason For Visit: BACK PAIN Discharge Diagnosis: SI Joint Pain Goals: You have been hospitalized for an acute medical problem. During your stay at [facility], we have made an effort to correct the problem that brought you to the hospital while keeping you as comfortable as possible. Medications were used to bring your condition under control and your discharge instructions will include directions for any medications you should take after leaving the hospital. Please make sure you see your Primary Care Provider as part of your follow up plan. Activity: As commented below Non-emergency contact: Primary Care Provider and Pain Management Call non-emergency contact if: you have any medication questions, your symptoms worsen and your pain is not controlled Follow-up/Referrals: Jose Luciano PA-C [Physician List Of First [employer]] - (1 week) Kenneth Pinzon MD [Primary Care Provider] - Diet: Carb Consistent or DM2 and Heart Healthy Addtl Attending Provider Instructions: You have been hospitalized for SI joint pain/back pain. Pain management was consulted and you underwent and injection for pain control. We have also initiated muscle relaxer baclofen twice daily to continue for spasm discomfort. As discussed, your calcium level was elevated on admission (and in the past). This could be due to a combination of things -- your BP medications both amlodipine and hydrochlorothiazide can cause elevations as well as vitamin D supplementation. I checked a Vitamin D level and this was high end of normal and you should STOP any further Vitamin D supplementation. You should monitor your blood pressures at home but STOP THE HYDROCHLOROTHIAZIDE for now to prevent worsening levels. If your blood pressure remains elevated there are alternative medications they can use. Please follow up with pain management next week to monitor your progress after discharge. Please also follow up with your primary care in the next 7-10 days to monitor progress after discharge. Please return to the ER with any worsening pain, uncontrolled pain, inability to ambulate, or for any other symptoms concerning for you. Take care! Pending Studies at Discharge: No Stand-Alone Forms: My [facility], Smoking Cessation Medications and DC Order Prescriptions: New baclofen 10 mg Tablet 10 mg PO BID Qty: 60 0RF Continued fluticasone propionate 50 mcg/actuation spray,suspension 2 spray intranasal DAILY PRN (Reason: ud) Qty: 15.8 3RF Flovent HFA 110 mcg/actuation HFA aerosol inhaler 2 inh INH BID PRN (Reason: sob) Qty: 12 3RF montelukast 10 mg tablet 10 mg PO QPM Qty: 90 3RF albuterol sulfate [Ventolin HFA] 90 mcg/actuation HFA aerosol inhaler 2 inh inhalation Q4H PRN (Reason: shortness of breath or wheezing) Qty: 8.5 3RF azelastine 137 mcg (0.1 %) aerosol,spray 2 spray intranasal BID PRN (Reason: nasal congestion) Qty: 30 11RF Rx Instructions: administer into each nostril amlodipine 10 mg tablet 10 mg PO DAILY Qty: 90 3RF losartan 100 mg tablet 100 mg PO QPM Qty: 90 3RF rosuvastatin 5 mg tablet 5 mg PO DAILY Qty: 90 3RF Rx Instructions: Take in evening with your other pills fentanyl 25 mcg/hr patch 72 hour 1 patch transdermal Q72H Qty: 5 0RF oxycodone 5 mg capsule See Rx Instructions PO QID PRN (Reason: pain) Qty: 90 0RF Rx Instructions: 1-2 tab orally four times daily PRN; naloxone [Narcan] 4 mg/actuation spray,non-aerosol 1 spray intranasal Q3M Qty: 2 0RF Rx Instructions: spray 1 dose into ONE nostril; alternate nostrils w each dose until help arrives lidocaine 5 % Adhesive Patch,Medicated 1 patch transdermal QAM Qty: 10 0RF Discontinued hydrochlorothiazide 25 mg tablet 25 mg PO QPM Qty: 90 3RF cholecalciferol (vitamin D3) 25 mcg (1,000 unit) capsule 25 mcg PO QAM Discharge Orders: Discharge Order (Routine); Ordered 03/02/22 Ordered By: Amparo Haro Admission Data Admit Date/Time: 03/01/22 18:49 Attending Provider: Silver Aguilera Admit Provider: Blake Mayberry Primary Care Provider: Kenneth Pinzon Other Providers: Blake Mayberry ; Ochoa Nayak Coding Level of Care Code 86793 OBS Care - Discharge Diagnoses Chronic sacroiliac pain M53.3; G89.29 Hypercalcemia E83.52 Lumbar radiculopathy M54.16 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
== END 2022-03-02 14:06 | disposition home or self-care (01) ==
LOC: ED 14:21 → 3N 14:21 → SUATTDRO 18:49 → 3N 19:58